=== PATIENT | male | born 1950 | race Caucasian/White ===

== ENCOUNTER 2017-09-05 16:53 | Inpatient (IN) | payer OTHER ==
[~2017-09-05] VITALS: Ht 172.7 cm; Wt 87.6 kg
[~2017-09-05 16:53] MED LIST: DOXY100 PO; Questran4 GM GT
[2017-09-05] MEDS ORDERED: Levothyroxine200 MCG (17:19)
[2017-09-05] MEDS ORDERED: METR500 PO (17:19)
[2017-09-05 17:42] LABS: BASOPHILS ABSOLUTE AUTO 0.06 K/mm3 (0.00-0.23); BASOPHILS PERCENT AUTO 1 % (0-2); EOSINOPHILS ABSOLUTE AUTO 3.83 K/mm3 (0.00-0.68); EOSINOPHILS PERCENT AUTO 38 % (0-6); Hematocrit 44.3 % (37.0-53.0); Hemoglobin 15.1 g/dL (13.5-17.5); IMMATURE GRAN ABSOLUTE AUTO 0.11 K/mm3 (0.00-0.10); IMMATURE GRAN PERCENT AUTO 1 % (0-1); LYMPHOCYTES ABSOLUTE AUTO 1.93 K/mm3 (0.84-5.20); LYMPHOCYTES PERCENT AUTO 19 % (21-46); MONOCYTES ABSOLUTE AUTO 1.03 K/mm3 (0.16-1.47); MONOCYTES PERCENT AUTO 10 % (4-13); Mean Corpuscular HGB 31.5 pg (26.0-34.0); Mean Corpuscular HGB Conc 34.1 g/dL (31.5-36.5); Mean Corpuscular Volume 92 fL (80-100); Mean Platelet Volume 9.5 fL (9.1-12.4); NEUTROPHILS ABSOLUTE AUTO 3.14 K/mm3 (1.96-9.15); NEUTROPHILS PERCENT AUTO 31 % (41-73); Platelet Count 246 K/mm3 (150-400); RDW Coefficient Variation 13.2 % (11.7-14.2)
[2017-09-05 17:52] LABS: Alanine Aminotransfer (ALT/SGP 23 U/L (12-78); Albumin/Globulin Ratio 0.8 (0.8-1.8); Alk Phos 85 U/L (50-136); Anion Gap 8 mmol/L (6-16); Aspartate Aminotrans (AST/SGOT 23 U/L (12-37); Bilirubin, Total 0.4 mg/dL (0.1-1.0); Blood Urea Nitrogen 23 mg/dL (8-24); Bun/Creatinine Ratio 10.3 (12.0-20.0); CO2, Blood 21 mmol/L (21-32); Calcium, Blood 9.1 mg/dL (8.5-10.1); Chloride, Blood 106 mmol/L (98-108); Creatinine, Blood 2.24 mg/dL (0.60-1.20); Free Thyroxine 0.61 ng/dL (0.70-1.60); Globulin, Blood 3.9 g/dL (2.2-4.0); Glomerular Filtration Rate 31 (60-); Glucose, Blood 63 mg/dL (70-99); Potassium, Blood 4.3 mmol/L (3.5-5.5); Sodium, Blood 135 mmol/L (136-145); Total Protein, Blood 6.9 g/dL (6.4-8.2); Troponin I <0.015 ng/mL (0.000-0.040)
[2017-09-05 18:00] LABS: Source, Urine Clean Catch
[2017-09-05 18:13] LABS: Blood, Urine 2+ (Neg); Glucose Qualitative, Urine Neg (Neg); Ketones, Urine Neg (Neg); Leukocyte Esterase, Urine 1+ (Neg); Nitrite, Urine Pos (Neg); Protein, Urine 2+ (Neg); Specific Gravity, Urine 1.025 (1.003-1.022); Urobilinogen, Urine NORM (Normal)
[2017-09-05 18:24] LABS: Appearance, Urine Clear (Clear); Color, Urine Brown (P-Yellow)
[2017-09-05 18:25] LABS: Bacteria Not Seen /hpf; Red Blood Cells, Urine Not Seen /hpf (0-2); Squamous Epithelial Cells Not Seen /hpf (Few); White Blood Cells, Urine Not Seen /hpf (0-5)
[2017-09-06 09:59] LABS: BASOPHILS ABSOLUTE AUTO 0.06 K/mm3 (0.00-0.23); BASOPHILS PERCENT AUTO 1 % (0-2); EOSINOPHILS ABSOLUTE AUTO 2.78 K/mm3 (0.00-0.68); EOSINOPHILS PERCENT AUTO 31 % (0-6); Hematocrit 42.4 % (37.0-53.0); Hemoglobin 14.2 g/dL (13.5-17.5); IMMATURE GRAN ABSOLUTE AUTO 0.09 K/mm3 (0.00-0.10); IMMATURE GRAN PERCENT AUTO 1 % (0-1); LYMPHOCYTES ABSOLUTE AUTO 1.93 K/mm3 (0.84-5.20); LYMPHOCYTES PERCENT AUTO 22 % (21-46); MONOCYTES ABSOLUTE AUTO 1.22 K/mm3 (0.16-1.47); MONOCYTES PERCENT AUTO 14 % (4-13); Mean Corpuscular HGB 30.6 pg (26.0-34.0); Mean Corpuscular HGB Conc 33.5 g/dL (31.5-36.5); Mean Corpuscular Volume 91 fL (80-100); Mean Platelet Volume 9.5 fL (9.1-12.4); NEUTROPHILS ABSOLUTE AUTO 2.82 K/mm3 (1.96-9.15); NEUTROPHILS PERCENT AUTO 32 % (41-73); Platelet Count 238 K/mm3 (150-400); RDW Coefficient Variation 13.4 % (11.7-14.2); RDW Standard Deviation 44.8 fL (35.1-46.3); Red Blood Cell Count 4.64 M/mm3 (4.30-5.90)
[2017-09-06 10:14] LABS: Albumin, Blood 2.8 g/dL (3.4-5.0); Anion Gap 9 mmol/L (6-16); Blood Urea Nitrogen 18 mg/dL (8-24); Bun/Creatinine Ratio 10.8 (12.0-20.0); CO2, Blood 20 mmol/L (21-32); Calcium, Blood 8.8 mg/dL (8.5-10.1); Chloride, Blood 109 mmol/L (98-108); Creatinine, Blood 1.67 mg/dL (0.60-1.20); Glomerular Filtration Rate 44 (60-); Glucose, Blood 94 mg/dL (70-99); Potassium, Blood 4.1 mmol/L (3.5-5.5); Sodium, Blood 138 mmol/L (136-145)
[2017-09-07 05:01] LABS: BASOPHILS ABSOLUTE AUTO 0.02 K/mm3 (0.00-0.23); BASOPHILS PERCENT AUTO 0 % (0-2); EOSINOPHILS ABSOLUTE AUTO 0.06 K/mm3 (0.00-0.68); EOSINOPHILS PERCENT AUTO 1 % (0-6); Hematocrit 37.5 % (37.0-53.0); Hemoglobin 12.7 g/dL (13.5-17.5); IMMATURE GRAN ABSOLUTE AUTO 0.12 K/mm3 (0.00-0.10); IMMATURE GRAN PERCENT AUTO 2 % (0-1); LYMPHOCYTES ABSOLUTE AUTO 1.34 K/mm3 (0.84-5.20); LYMPHOCYTES PERCENT AUTO 20 % (21-46); MONOCYTES ABSOLUTE AUTO 0.48 K/mm3 (0.16-1.47); MONOCYTES PERCENT AUTO 7 % (4-13); Mean Corpuscular HGB 31.1 pg (26.0-34.0); Mean Corpuscular HGB Conc 33.9 g/dL (31.5-36.5); Mean Corpuscular Volume 92 fL (80-100); Mean Platelet Volume 9.8 fL (9.1-12.4); NEUTROPHILS ABSOLUTE AUTO 4.71 K/mm3 (1.96-9.15); NEUTROPHILS PERCENT AUTO 70 % (41-73); Platelet Count 196 K/mm3 (150-400); RDW Coefficient Variation 13.3 % (11.7-14.2); RDW Standard Deviation 45.2 fL (35.1-46.3); Red Blood Cell Count 4.09 M/mm3 (4.30-5.90); White Blood Cell Count 6.73 K/mm3 (4.00-11.30)
[2017-09-07 05:23] LABS: Albumin, Blood 2.5 g/dL (3.4-5.0); Albumin/Globulin Ratio 0.7 (0.8-1.8); Bilirubin, Total 0.4 mg/dL (0.1-1.0); Bun/Creatinine Ratio 12.4 (12.0-20.0); Calcium, Blood 8.4 mg/dL (8.5-10.1); Creatinine, Blood 1.61 mg/dL (0.60-1.20); Globulin, Blood 3.7 g/dL (2.2-4.0); Total Protein, Blood 6.2 g/dL (6.4-8.2)
[2017-09-07 08:31] LABS: Adenovirus F 40/41 Not Detected (NOT DETECT); Astrovirus Not Detected (NOT DETECT); Campylobacter Sp Not Detected (NOT DETECT); Cryptosporidium Not Detected (NOT DETECT); Cyclospora Cayetanensis Not Detected (NOT DETECT); E. Coli O157 Not Detected (NOT DETECT); Entamoeba Histolytica Not Detected (NOT DETECT); Enteroaggregative E. coli-EAEC Not Detected (NOT DETECT); Enteropathogenic E. coli-EPEC Not Detected (NOT DETECT); Enterotoxigenic E. coli-ETEC Not Detected (NOT DETECT); Giardia Lamblia Not Detected (NOT DETECT); Norovirus GI/GII Not Detected (NOT DETECT); Plesiomonas Shigelloides Not Detected (NOT DETECT); Rotavirus A Not Detected (NOT DETECT); Salmonella Sp Not Detected (NOT DETECT); Sapovirus Not Detected (NOT DETECT); Shiga Toxin-prod E. coli-STEC Not Detected (NOT DETECT); Shigella/Enteroin E. coli-EIEC Not Detected (NOT DETECT); Vibrio Cholerae Not Detected (NOT DETECT); Vibrio Sp Not Detected (NOT DETECT); Yersinia Enterocolitica Not Detected (NOT DETECT)
[2017-09-07] MEDS ORDERED: Zofran Odt8 MG PO (11:09)
[2017-09-07] MEDS ORDERED: HYDCOR20 PO (11:09)
[2017-09-07] MEDS ORDERED: Omeprazole20 M1 PO (11:10)
== END 2017-09-07 12:16 | disposition home or self-care (01) | DRG 683 ==
LOC: ER 16:53 → MEDS 18:50 → ER 19:39 → MEDS 19:43 → UNDODEPER 19:43 → MEDS 09-07 12:16
PROVIDERS: Emergency Medicine; Internal Medicine
DX: N17.9 Acute kidney failure, unspecified (principal); E89.6 Postprocedural adrenocortical (-medullary) hypofunction; C78.02 Secondary malignant neoplasm of left lung; C78.01 Secondary malignant neoplasm of right lung; C79.71 Secondary malignant neoplasm of right adrenal gland; C79.01 Secondary malignant neoplasm of right kidney and renal pelvis; E27.1 Primary adrenocortical insufficiency; E86.0 Dehydration; I95.1 Orthostatic hypotension; E16.2 Hypoglycemia, unspecified; R22.0 Localized swelling, mass and lump, head; E23.6 Other disorders of pituitary gland; Z85.528 Personal history of other malignant neoplasm of kidney; Z79.899 Other long term (current) drug therapy; Z90.5 Acquired absence of kidney; Z88.5 Allergy status to narcotic agent
CPT/HCPCS: 36415; 80053; 80069; 80400; 81001; 82024; 82533; 82947; 84439; 84443; 84484; 85025; 87086; 87507; 93005; 93010; 96360; 99285; C9113; J0834; J1720; J2405; J7030; J7042

== ENCOUNTER 2018-04-08 06:40 | Inpatient (IN) | payer OTHER ==
[~2018-04-08] VITALS: Ht 172.7 cm; Wt 102.6 kg
[~2018-04-08 06:40] MED LIST changes: +ACYC800 PO; +CARB200 PO; +CEFU500T30 PO; +HYDCOR20 PO; +LEVSOD137 PO; +Levothyroxine200 MCG; +METR500 PO; +Omeprazole20 M1 PO; +PRED10 PO; +PRED5 PO; +SUMA25 PO; +ZOLP10 PO; +Zofran Odt8 MG PO
[2018-04-08 07:00] LABS: Calcium, Ionized (POC) 1.13 mmol/L (1.10-1.46); Chloride (POC) 95 mmol/L (98-108); Creatinine (POC) 1.5 mg/dL (0.8-1.3); Glucose (ISTAT POC) 88 mg/dL (70-99); Hemoglobin (POC) 11.6 g/dL (13.5-17.5); Potassium (POC) 4.5 mmol/L (3.5-5.5); Sodium (POC) 133 mmol/L (135-148); Total CO2 (POC) 27 mmol/L (21-32)
[2018-04-08 07:01] LABS: BASOPHILS ABSOLUTE AUTO 0.03 K/mm3 (0.00-0.23); BASOPHILS PERCENT AUTO 0 % (0-2); EOSINOPHILS ABSOLUTE AUTO 1.19 K/mm3 (0.00-0.68); EOSINOPHILS PERCENT AUTO 8 % (0-6); Hematocrit 32.4 % (37.0-53.0); Hemoglobin 10.2 g/dL (13.5-17.5); IMMATURE GRAN ABSOLUTE AUTO 0.74 K/mm3 (0.00-0.10); IMMATURE GRAN PERCENT AUTO 5 % (0-1); LYMPHOCYTES ABSOLUTE AUTO 1.51 K/mm3 (0.84-5.20); LYMPHOCYTES PERCENT AUTO 11 % (21-46); MONOCYTES ABSOLUTE AUTO 1.16 K/mm3 (0.16-1.47); MONOCYTES PERCENT AUTO 8 % (4-13); Mean Corpuscular HGB 27.9 pg (26.0-34.0); Mean Corpuscular HGB Conc 31.5 g/dL (31.5-36.5); Mean Corpuscular Volume 89 fL (80-100); Mean Platelet Volume 8.6 fL (9.1-12.4); NEUTROPHILS ABSOLUTE AUTO 9.69 K/mm3 (1.96-9.15); NEUTROPHILS PERCENT AUTO 68 % (41-73); NRBC ABSOLUTE 0.02 K/mm3 (0.00-0.02); NRBC Auto 0.1 /100 WBC (0.0-0.2); Platelet Count 218 K/mm3 (150-400); RDW Coefficient Variation 14.7 % (11.7-14.2); RDW Standard Deviation 48.6 fL (35.1-46.3); Red Blood Cell Count 3.65 M/mm3 (4.30-5.90); White Blood Cell Count 14.32 K/mm3 (4.00-11.30)
[2018-04-08 07:19] LABS: Alanine Aminotransfer (ALT/SGP 28 U/L (12-78); Albumin, Blood 2.8 g/dL (3.4-5.0); Albumin/Globulin Ratio 0.6 (0.8-1.8); Alk Phos 69 U/L (50-136); Anion Gap 6 mmol/L (6-16); Aspartate Aminotrans (AST/SGOT 16 U/L (12-37); Bilirubin, Total 0.1 mg/dL (0.1-1.0); Blood Urea Nitrogen 14 mg/dL (8-24); Bun/Creatinine Ratio 9.4 (12.0-20.0); CO2, Blood 27 mmol/L (21-32); Calcium, Blood 8.2 mg/dL (8.5-10.1); Chloride, Blood 98 mmol/L (98-108); Creatinine, Blood 1.49 mg/dL (0.60-1.20); Free Thyroxine 0.78 ng/dL (0.70-1.60); Globulin, Blood 4.7 g/dL (2.2-4.0); Glomerular Filtration Rate 50 (60-); Glucose, Blood 83 mg/dL (70-99); Potassium, Blood 4.4 mmol/L (3.5-5.5); Sodium, Blood 131 mmol/L (136-145); Total Protein, Blood 7.5 g/dL (6.4-8.2)
[2018-04-08 07:22] LABS: Thyroid Stimulating Hormone <0.005 uIU/mL (0.360-4.800)
[2018-04-08 10:01] LABS: Cryptococcus Neoformans/Gattii Not Detected (NOT DETECT); Enterovirus Not Detected (NOT DETECT); Escherichia Coli K1 Not Detected (NOT DETECT); Haemophilus Influenza Not Detected (NOT DETECT); Herpes Simplex Virus 1 Not Detected (NOT DETECT); Herpes Simplex Virus 2 Not Detected (NOT DETECT); Human Herpesvirus 6 Not Detected (NOT DETECT); Human Parechovirus Not Detected (NOT DETECT); Listeria Monocytogenes Not Detected (NOT DETECT); Neisseria Meningitidis Not Detected (NOT DETECT); Streptococcus Agalactiae Not Detected (NOT DETECT); Streptococcus Pneumoniae Not Detected (NOT DETECT); Varicella Zoster Virus Not Detected (NOT DETECT)
[2018-04-08 10:05] LABS: Automated CSF WBC Count 0.002 K/mm3 (0-5)
[2018-04-08 10:37] LABS: Color, CSF No Color (No Color); RBC Count, CSF 8 /mm3 (0-0)
[2018-04-08 10:38] LABS: Appearance, CSF Clear (Clear)
[2018-04-08 10:49] LABS: Eosinophils, CSF 4 % (0-0); Lymphocytes, CSF 40 % (40-80); Monocytes, CSF 24 % (15-45); Neutrophils, CSF 32 % (0-6)
[2018-04-08 11:08] LABS: Glucose, CSF 49 mg/dL (40-70)
[2018-04-08 16:10] LABS: Source, Urine Catheter
--- NOTE | 2018-04-08 16:24 | NUR ---
PT HAD A DNR BRACELET PLACED AND THEN WAS REMOVED CODE STATUS WAS CHANGED TO LIMITED. PT ALSO WAS BLADDER SCANNED AND 225 ML FOUND, DR Roderick RAYO PRESENT AND REQUESTED CHE CATHETER PLACED FOR STRICT I&Os. PT TOLERATED PLACEMENT WELL. UA COLLECTED AND SENT PER PROTOCOL.
[2018-04-08 16:27] LABS: Appearance, Urine Hazy (Clear); Bilirubin, Urine Neg (Neg); Blood, Urine Neg (Neg); Color, Urine Yellow (P-Yellow); Glucose Qualitative, Urine Neg (Neg); Ketones, Urine Neg (Neg); Leukocyte Esterase, Urine Neg (Neg); Nitrite, Urine Neg (Neg); Protein, Urine Neg (Neg); Specific Gravity, Urine 1.015 (1.003-1.022); Urobilinogen, Urine NORM (Normal)
[2018-04-08 16:53] LABS: Bacteria Not Seen /hpf; Red Blood Cells, Urine Not Seen /hpf (0-2); Squamous Epithelial Cells Not Seen /hpf (Few); White Blood Cells, Urine Not Seen /hpf (0-5)
--- NOTE | 2018-04-08 17:04 | NUR ---
PT ARRIVE TODAY AND WOULD ONLY WAKE UP A COUPLE TIMES ONCE HE SAID A COUPLE WORDS AND SEEMS TO UNDERSTAND WHAT YOU ARE SAYING, BUT IMMEDIATELY FALLS ASLEEP. FEVER CONTINUES TO COME BACK DR Roderick RAYO PRESCIBED TYLENOL SUPPOSITORY. WILL MONITOR CLOSELY.
[2018-04-09 05:18] LABS: BASOPHILS ABSOLUTE AUTO 0.04 K/mm3 (0.00-0.23); BASOPHILS PERCENT AUTO 0 % (0-2); EOSINOPHILS ABSOLUTE AUTO 1.11 K/mm3 (0.00-0.68); EOSINOPHILS PERCENT AUTO 7 % (0-6); Hematocrit 30.6 % (37.0-53.0); Hemoglobin 9.5 g/dL (13.5-17.5); IMMATURE GRAN ABSOLUTE AUTO 0.72 K/mm3 (0.00-0.10); IMMATURE GRAN PERCENT AUTO 5 % (0-1); LYMPHOCYTES PERCENT AUTO 8 % (21-46); MONOCYTES PERCENT AUTO 6 % (4-13); Mean Corpuscular HGB 27.4 pg (26.0-34.0); Mean Corpuscular Volume 88 fL (80-100); NEUTROPHILS ABSOLUTE AUTO 11.82 K/mm3 (1.96-9.15); NEUTROPHILS PERCENT AUTO 75 % (41-73); Platelet Count 189 K/mm3 (150-400); RDW Coefficient Variation 14.8 % (11.7-14.2); RDW Standard Deviation 47.3 fL (35.1-46.3); Red Blood Cell Count 3.47 M/mm3 (4.30-5.90); White Blood Cell Count 15.79 K/mm3 (4.00-11.30)
--- NOTE | 2018-04-09 05:31 | NUR ---
VSS, AFEBRILE, A/O BUT VERY LETHARGIC AT TIMES, PT MORE ALERT AND AWAKE NEAR MORNING, IV IN EACH AC, NS @ 75 ML/HR, IVABX, ANTIVIRAL THERAPY, CHE FOR ACCURATE I/O, NEG SPINAL TAP. PMHX: RENAL CELL CARCINOMA W/METS TO THE BRAIN, CKD STAGE 3, HYPOTHYROIDISM. BED REST BUT USES BED PRABHAKAR WELL. FAMILY AT THE BEDSIDE
[2018-04-09 05:40] LABS: Albumin, Blood 2.4 g/dL (3.4-5.0); Albumin/Globulin Ratio 0.5 (0.8-1.8); Bilirubin, Total 0.2 mg/dL (0.1-1.0); Bun/Creatinine Ratio 13.3 (12.0-20.0); Calcium, Blood 7.6 mg/dL (8.5-10.1); Creatinine, Blood 1.35 mg/dL (0.60-1.20); Globulin, Blood 4.4 g/dL (2.2-4.0); Total Protein, Blood 6.8 g/dL (6.4-8.2)
--- NOTE | 2018-04-09 17:24 | NUR ---
PT IS AOX4 TODAY AND IS ABLE TO AMBULATE A STANDBY ASSIST TO RESTROOM. CHE HAS BEEN REMOVED AND PT TOLERATED WELL. PT CALLS APPROPRIATELY. NO DISTRESS NOTED AT THIS TIME. REGULAR DIET AND THIN LIQUIDS.
[2018-04-09 17:54] LABS: Vancomycin, Trough 20.7 ug/mL (5.0-10.0)
[2018-04-10 05:02] LABS: BASOPHILS ABSOLUTE AUTO 0.04 K/mm3 (0.00-0.23); BASOPHILS PERCENT AUTO 0 % (0-2); EOSINOPHILS ABSOLUTE AUTO 0.96 K/mm3 (0.00-0.68); EOSINOPHILS PERCENT AUTO 7 % (0-6); Hematocrit 27.6 % (37.0-53.0); Hemoglobin 8.8 g/dL (13.5-17.5); IMMATURE GRAN ABSOLUTE AUTO 0.38 K/mm3 (0.00-0.10); IMMATURE GRAN PERCENT AUTO 3 % (0-1); LYMPHOCYTES ABSOLUTE AUTO 1.38 K/mm3 (0.84-5.20); LYMPHOCYTES PERCENT AUTO 11 % (21-46); MONOCYTES ABSOLUTE AUTO 0.84 K/mm3 (0.16-1.47); MONOCYTES PERCENT AUTO 6 % (4-13); Mean Corpuscular HGB 27.5 pg (26.0-34.0); Mean Corpuscular HGB Conc 31.9 g/dL (31.5-36.5); Mean Corpuscular Volume 86 fL (80-100); Mean Platelet Volume 9.1 fL (9.1-12.4); NEUTROPHILS PERCENT AUTO 73 % (41-73); Platelet Count 196 K/mm3 (150-400); RDW Coefficient Variation 14.8 % (11.7-14.2); RDW Standard Deviation 46.5 fL (35.1-46.3)
[2018-04-10 05:23] LABS: Albumin, Blood 2.5 g/dL (3.4-5.0); Albumin/Globulin Ratio 0.6 (0.8-1.8); Bilirubin, Total 0.1 mg/dL (0.1-1.0); Bun/Creatinine Ratio 16.3 (12.0-20.0); C-REACTIVE PROTEIN, EXT RANGE 8.41 mg/dL (0.000-0.300); Calcium, Blood 7.9 mg/dL (8.5-10.1); Creatinine, Blood 1.29 mg/dL (0.60-1.20); Globulin, Blood 4.2 g/dL (2.2-4.0); Magnesium, Blood 2.4 mg/dL (1.6-2.4); Phosphorus, Blood 2.3 mg/dL (2.5-4.9); Potassium, Blood 3.7 mmol/L (3.5-5.5); Total Protein, Blood 6.7 g/dL (6.4-8.2)
--- NOTE | 2018-04-10 06:05 | NUR ---
VSS, AFEBRILE, A/O, MORE LUCID AND ACTIVE THIS SHIFT, INDEPENDENT TO BR, IV IN EA AC, NS @ 75 ML/HR, FAMILY AT THE BEDSIDE, MULTIPLE IVABX. PMHX: RENAL CELL CARCINOMA W/METS TO BRAIN, CKD STAGE 3, HYPOTHYROIDISM. SLEPT WELL, NO COMPLAINTS.
[2018-04-10 06:56] LABS: IMMATURE RETIC FRACTION 27.2 % (2.3-16.0); RETIC HGB EQUIVALENT 32.8 pg (28.20-36.60); RETICULOCYTE ABSOLUTE 0.0468 M/mm3 (0.0200-0.1100); RETICULOCYTE COUNT PERCENT 1.51 % (0.50-2.50)
[2018-04-10 07:25] LABS: Percent Saturation 17.5 % (20.0-50.0)
--- NOTE | 2018-04-10 19:34 | NUR ---
SHIFT SUMMARY PT A&Ox4, CALM AND COOPERATIVE WITH CARE. PT UP IN CHAIR DURING SHIFT. IND TO BATHROOM. PT DENIES PAIN, SOB AND N/V DURING SHIFT. PT RECEIVING IV ANTIBIOTICS, ANTIVIRALS, STEROIDS AND POTASSIUM PHOSPHATE. VSS. NO OTHER ACUTE CHANGES DURING SHIFT. REPORT GIVEN TO ONCOMING RN.
--- NOTE | 2018-04-11 05:35 | NUR ---
VSS, AFEBRILE, A/O X 4, INDEPENDENT, IV IN EACH AC, NS @ 75 ML/HR, MANY IV ABX, FAMILY AT THE BEDSIDE CAN BE DEMANDING AT TIMES. PMHX: RENAL CELL CARCINOMA W/METS TO BRAIN, CKD STAGE 3, HYPOTHYROIDISM. CONSULT TO INFECTION CONTROL. SLEPT WELL OVER NOC.
[2018-04-11 05:36] LABS: BASOPHILS ABSOLUTE AUTO 0.05 K/mm3 (0.00-0.23); BASOPHILS PERCENT AUTO 1 % (0-2); EOSINOPHILS ABSOLUTE AUTO 1.31 K/mm3 (0.00-0.68); EOSINOPHILS PERCENT AUTO 12 % (0-6); Hematocrit 29.1 % (37.0-53.0); Hemoglobin 9.1 g/dL (13.5-17.5); IMMATURE GRAN ABSOLUTE AUTO 0.65 K/mm3 (0.00-0.10); IMMATURE GRAN PERCENT AUTO 6 % (0-1); LYMPHOCYTES ABSOLUTE AUTO 2.04 K/mm3 (0.84-5.20); LYMPHOCYTES PERCENT AUTO 19 % (21-46); MONOCYTES ABSOLUTE AUTO 1.07 K/mm3 (0.16-1.47); MONOCYTES PERCENT AUTO 10 % (4-13); Mean Corpuscular HGB 27.8 pg (26.0-34.0); Mean Corpuscular HGB Conc 31.3 g/dL (31.5-36.5); Mean Platelet Volume 8.9 fL (9.1-12.4); NEUTROPHILS ABSOLUTE AUTO 5.91 K/mm3 (1.96-9.15); NEUTROPHILS PERCENT AUTO 54 % (41-73); Platelet Count 249 K/mm3 (150-400); RDW Coefficient Variation 14.9 % (11.7-14.2); RDW Standard Deviation 48.6 fL (35.1-46.3); Red Blood Cell Count 3.27 M/mm3 (4.30-5.90); White Blood Cell Count 11.03 K/mm3 (4.00-11.30)
[2018-04-11 05:41] LABS: Mean Corpuscular Volume 89 fL (80-100)
[2018-04-11 05:57] LABS: Anion Gap 8 mmol/L (6-16); Blood Urea Nitrogen 16 mg/dL (8-24); Bun/Creatinine Ratio 12.6 (12.0-20.0); CO2, Blood 26 mmol/L (21-32); Calcium, Blood 7.8 mg/dL (8.5-10.1); Chloride, Blood 108 mmol/L (98-108); Creatinine, Blood 1.27 mg/dL (0.60-1.20); Glomerular Filtration Rate 60 (60-); Glucose, Blood 89 mg/dL (70-99); Phosphorus, Blood 1.7 mg/dL (2.5-4.9); Sodium, Blood 142 mmol/L (136-145)
[2018-04-11 06:05] LABS: Vancomycin, Trough 20.2 ug/mL (5.0-10.0)
--- NOTE | 2018-04-11 06:14 | NUR ---
CRITICAL LAB VALUE: VANCO 20.2 PHARMACY AWARE. WILL HOLD THE 0600 DOSE OF VANCO TODAY PER PHARMACY.
--- NOTE | 2018-04-11 10:32 | NUR ---
Patient was alert and welcoming. His , Ariana was present in the room. Pt showed no signs of physical pain. Pt verbalized frustration over the continual health struggles and shared some of his medical history along with the spiritual and emotional toll that the medical issues has taken on Ariana and on himself. I normalized his experience and offered emotional and spiritual support by empathically listening and providing some uplifting Bible quotes. I prayed for the patient and Ariana. They both stated with smiles on their faces that they were encouraged by the visit and that hope was improved as well as having their vielka restored.
--- NOTE | 2018-04-11 14:03 | NUR ---
Pt is sitting in a chair upon arrival. He is A&O and denies pain at this time. Pt's is present during visit. Pt denies dyspnea and axiety. He is of Taoism vielka. He reprots that he may be discharged home tomorrow. Pt reports that he will have a PICC line placed and will receive IV antibiotic therapy at the [facility]. Pt and report they have adequate support at home and can rely on their older son and their friends from [place]. Pt reports that he received a visit from Chaplain Contreras and enjoyed his visit. Discussion was made about advance directive and Pt expresses interest. Educated Pt and his on advance directives and instructed them this RN will be available to answer any questions or concerns. No other concerns reported at this time. Spoke with Pt's nurse and she reports no concerns at this time. Plan to reamain available
--- NOTE | 2018-04-11 18:16 | NUR ---
PATIENT IS PLEASANT, ALERT AND ORIENTED AND ABLE TO EXPRESS ANY NEEDS . HE IS INDEPENDENT IN THE ROOM AND HAS HIS AT BEDSIDE THROUGHOUT THE SHIFT. VANCO HELD DUE TO CRITICAL VALUE . PATIENT TO DC MONDAY AND WILL RETURN BID TO ATC FOR IV ABX. PATIENT HAS HAD NO COMPLAINTS THIS SHIFT .
--- NOTE | 2018-04-12 06:49 | NUR ---
SHIFT SUMMARY PT A&OX4, PLEASANT AND COOPERATIVE WITH CARE. AMBULATES INDEPENDENTLY IN ROOM. AT BEDSIDE ALL NIGHT. SLEPT WELL. NO ACUTE CHANGES AT THIS SHIFT. WILL CONTINUE TO MONITOR.
[2018-04-12 06:51] LABS: Hematocrit 29.5 % (37.0-53.0); Hemoglobin 9.2 g/dL (13.5-17.5); Mean Corpuscular HGB 27.9 pg (26.0-34.0); Mean Corpuscular HGB Conc 31.2 g/dL (31.5-36.5); Mean Corpuscular Volume 89 fL (80-100); Mean Platelet Volume 8.9 fL (9.1-12.4); NRBC ABSOLUTE 0.04 K/mm3 (0.00-0.02); NRBC Auto 0.5 /100 WBC (0.0-0.2); Platelet Count 258 K/mm3 (150-400); RDW Coefficient Variation 15.4 % (11.7-14.2); RDW Standard Deviation 50.2 fL (35.1-46.3); White Blood Cell Count 8.48 K/mm3 (4.00-11.30)
[2018-04-12 07:06] LABS: C-REACTIVE PROTEIN, EXT RANGE 1.9 mg/dL (0.000-0.300); Phosphorus, Blood 2.6 mg/dL (2.5-4.9)
[2018-04-12 07:28] LABS: BASOPHILS ABSOLUTE MAN 0.16 K/mm3 (0.00-0.23); BASOPHILS PERCENT MAN 2 % (0-2); EOSINOPHILS ABSOLUTE MAN 1.44 K/mm3 (0.00-0.68); EOSINOPHILS PERCENT MAN 17 % (0-6); LYMPHOCYTES ABSOLUTE MAN 2.54 K/mm3 (0.84-5.20); LYMPHOCYTES PERCENT MAN 30 % (21-46); METAMYELOCYTE ABSOLUTE MAN 0.08 K/mm3 (0.00-0.00); METAMYELOCYTE PERCENT MAN 1 % (0-0); MONOCYTES ABSOLUTE MAN 0.16 K/mm3 (0.16-1.47); MONOCYTES PERCENT MAN 2 % (4-13); MYELOCYTE ABSOLUTE MAN 0.16 K/mm3 (0.00-0.00); MYELOCYTE PERCENT MAN 2 % (0-0); SEG NEUTROPHILS PERCENT MAN 46 % (41-73); TOTAL CELLS COUNTED 100
--- NOTE | 2018-04-12 11:00 | NUR ---
Patient was sitting up in a chair when I entered the room. Pt. was, in his own words, "having a pity republican" and "feeling broken." I was able to listen empathically to his current struggle that was connected to his worth as a man and the fears that link back to his father's slow deterioration and demise. Since I was already familiar with the patient's vielka system, I was able to encourage him with a few quotes from the Bible concerning his value and worth. I also affirmed his courage and his helpful attitudes and practices and offer emotionally and spiritual support. I closed our time with proving prayer. Pt showed signs of an elevated mood, reduced sress, and restored vielka.
[2018-04-12] MEDS ORDERED: Rocephin 1g1 G/50 ML IV (12:39)
[2018-04-12] MEDS ORDERED: VANCOMYCIN1.5 GM/252 IV (12:41)
[2018-04-12] MEDS ORDERED: FURO40 PO (12:42)
[2018-04-12] MEDS ORDERED: POTA10T PO (12:47)
--- NOTE | 2018-04-12 18:20 | NUR ---
DISCHARGE. PT TO DISCHARGE HOME. FINAL IV ABX GIVEN. PATIENT TO RETURN BID TO [facility] FOR IV ABX . PATIENT AND EDUATED REGARDING NEW MEDS AND PROPER CARE OF PICC . IV REMOVED. NO SS OF INFECTION NOTED. PATIENT WALKED OUT WITH .
== END 2018-04-12 19:02 | disposition home or self-care (01) | DRG 98 ==
LOC: ER 06:40 → ERHOLD 09:22 → MEDS 09:22
PROVIDERS: Emergency Medicine; Hospitalist; ADMIT Family Medicine
PROC: 009Y3ZX Drainage of Lumbar Spinal Cord, Percutaneous Approach, Diagnostic (ICD-10-PCS; principal; 2018-04-08)
DX: A86 Unspecified viral encephalitis (principal); E23.0 Hypopituitarism; E27.40 Unspecified adrenocortical insufficiency; C79.31 Secondary malignant neoplasm of brain; D50.9 Iron deficiency anemia, unspecified; G50.0 Trigeminal neuralgia; I12.9 Hypertensive chronic kidney disease with stage 1 through stage 4 chronic kidney disease, or unspecified chronic kidney disease; N18.3 Chronic kidney disease, stage 3 (moderate); Z79.899 Other long term (current) drug therapy; Z85.528 Personal history of other malignant neoplasm of kidney
CPT/HCPCS: 36415; 36569; 62270; 70450; 80047; 80048; 80053; 80156; 80202; 81001; 82607; 82728; 82746; 82945; 83540; 83550; 83605; 83735; 84100; 84157; 84439; 84443; 85014; 85025; 85045; 85651; 86140; 87040; 87070; 87205; 87483; 89051; 93005; 93010; 96361; 96365; 96367; 96375; 99285-25; C1751; J0696; J1650; J1720; J1940; J2185; J3370; J7030; J7050; J7060; J8499

== ENCOUNTER 2018-04-13 01:31 | Day surgery (SDC) | payer OTHER ==
[~2018-04-13 01:31] MED LIST changes: +FURO40 PO; +POTA10T PO; +Rocephin 1g1 G/50 ML IV; +VANCOMYCIN1.5 GM/252 IV
[2018-04-13 08:29] LABS: Creatinine, Blood 1.29 mg/dL (0.60-1.20); Vancomycin, Trough 14.8 ug/mL (5.0-10.0)
== END 2018-04-13 16:20 | disposition home or self-care (01) ==
LOC: ATC 01:31
PROVIDERS: Hospitalist
DX: G03.9 Meningitis, unspecified (principal); N18.3 Chronic kidney disease, stage 3 (moderate); E03.9 Hypothyroidism, unspecified
CPT/HCPCS: 36592; 80202; 82565; 96365; J0696; J3370; J7050

== ENCOUNTER 2018-04-14 07:20 | Day surgery (SDC) | payer OTHER | END 2018-04-14 16:25 | disposition home or self-care (01) | LOC: ATC 07:20 | DX: G93.40 Encephalopathy, unspecified (principal) | CPT/HCPCS: 96365; 96367; J0696; J3370; J7050 ==

== ENCOUNTER 2018-04-15 07:27 | Day surgery (SDC) | payer OTHER | END 2018-04-15 16:13 | disposition home or self-care (01) | LOC: ATC 07:27 | DX: G93.40 Encephalopathy, unspecified (principal); N18.3 Chronic kidney disease, stage 3 (moderate); E78.5 Hyperlipidemia, unspecified | CPT/HCPCS: 96365; 96367; J0696; J3370; J7050 ==

== ENCOUNTER 2018-04-16 00:03 | Day surgery (SDC) | payer OTHER ==
[2018-04-16 08:38] LABS: Creatinine, Blood 1.09 mg/dL (0.60-1.20); Vancomycin, Trough 16.5 ug/mL (5.0-10.0)
[2018-04-17] MEDS ORDERED: VANCO 1.51.5 GM/250 IV (08:09)
== END 2018-04-16 16:32 | disposition home or self-care (01) ==
LOC: ATC 00:03
PROVIDERS: Hospitalist
DX: G03.9 Meningitis, unspecified (principal); G93.40 Encephalopathy, unspecified; G50.9 Disorder of trigeminal nerve, unspecified; E78.5 Hyperlipidemia, unspecified; E27.1 Primary adrenocortical insufficiency; Z79.01 Long term (current) use of anticoagulants
CPT/HCPCS: 80202; 82565; 96365; 96367; J0696; J3370; J7050

== ENCOUNTER 2018-04-17 00:04 | Day surgery (SDC) | payer OTHER ==
[2018-04-17] MEDS ORDERED: VANCO 1.51.5 GM/250 IV (08:09)
== END 2018-04-17 16:30 | disposition home or self-care (01) ==
LOC: ATC 00:04
DX: G93.40 Encephalopathy, unspecified (principal)
CPT/HCPCS: 96365; 96368; J0696; J3370; J7050

== ENCOUNTER 2018-04-18 00:15 | Day surgery (SDC) | payer OTHER ==
[~2018-04-18 00:15] MED LIST changes: +VANCO 1.51.5 GM/250 IV
== END 2018-04-18 17:28 | disposition home or self-care (01) ==
LOC: ATC 00:15
DX: G03.9 Meningitis, unspecified (principal); G50.9 Disorder of trigeminal nerve, unspecified; Z79.01 Long term (current) use of anticoagulants
CPT/HCPCS: 96365; 96368; J0696; J3370; J7050

== ENCOUNTER 2018-04-19 00:10 | Day surgery (SDC) | payer OTHER ==
[2018-04-19 09:01] LABS: BASOPHILS ABSOLUTE AUTO 0.11 K/mm3 (0.00-0.23); BASOPHILS PERCENT AUTO 2 % (0-2); EOSINOPHILS ABSOLUTE AUTO 0.37 K/mm3 (0.00-0.68); EOSINOPHILS PERCENT AUTO 5 % (0-6); Hemoglobin 10.5 g/dL (13.5-17.5); IMMATURE GRAN ABSOLUTE AUTO 0.07 K/mm3 (0.00-0.10); IMMATURE GRAN PERCENT AUTO 1 % (0-1); LYMPHOCYTES ABSOLUTE AUTO 2.07 K/mm3 (0.84-5.20); LYMPHOCYTES PERCENT AUTO 28 % (21-46); MONOCYTES ABSOLUTE AUTO 0.98 K/mm3 (0.16-1.47); MONOCYTES PERCENT AUTO 13 % (4-13); Mean Corpuscular HGB 27.5 pg (26.0-34.0); Mean Corpuscular HGB Conc 30.9 g/dL (31.5-36.5); Mean Corpuscular Volume 89 fL (80-100); Mean Platelet Volume 8.4 fL (9.1-12.4); NEUTROPHILS ABSOLUTE AUTO 3.73 K/mm3 (1.96-9.15); NEUTROPHILS PERCENT AUTO 51 % (41-73); Platelet Count 318 K/mm3 (150-400); RDW Coefficient Variation 15.2 % (11.7-14.2); RDW Standard Deviation 49.9 fL (35.1-46.3); Red Blood Cell Count 3.82 M/mm3 (4.30-5.90); White Blood Cell Count 7.33 K/mm3 (4.00-11.30)
[2018-04-19 09:20] LABS: Alanine Aminotransfer (ALT/SGP 29 U/L (12-78); Albumin, Blood 3.2 g/dL (3.4-5.0); Albumin/Globulin Ratio 0.7 (0.8-1.8); Alk Phos 60 U/L (50-136); Anion Gap 4 mmol/L (6-16); Aspartate Aminotrans (AST/SGOT 10 U/L (12-37); Bilirubin, Total 0.2 mg/dL (0.1-1.0); Blood Urea Nitrogen 18 mg/dL (8-24); Bun/Creatinine Ratio 16.1 (12.0-20.0); CO2, Blood 29 mmol/L (21-32); Calcium, Blood 8.6 mg/dL (8.5-10.1); Chloride, Blood 103 mmol/L (98-108); Creatinine, Blood 1.12 mg/dL (0.60-1.20); Globulin, Blood 4.8 g/dL (2.2-4.0); Glomerular Filtration Rate >60 (60-); Glucose, Blood 105 mg/dL (70-99); Sodium, Blood 136 mmol/L (136-145)
--- NOTE | 2018-04-19 17:24 | NUR ---
PT C/O RASH ON BUE, THIS RN DID NOTICE DIFUSE RED SPOTS. DENIES SOB, TONGUE SWELLING, FEVER, CHILLS, N/V. PT STS HE IS ACTUALLY FEELING BETTER. PT STS HE HAS CALLED HIS DOCTOR AND SPOKE TO A NURSE RE. THE RASH. PT DECLINES GOING TO ER AT THIS TIME.
== END 2018-04-19 17:22 | disposition home or self-care (01) ==
LOC: ATC 00:10
PROVIDERS: Hospitalist
DX: G04.90 Encephalitis and encephalomyelitis, unspecified (principal); G50.9 Disorder of trigeminal nerve, unspecified; Z79.01 Long term (current) use of anticoagulants
CPT/HCPCS: 80053; 85025; 85651; 86140; 96365; 96367; J0696; J3370; J7050

== ENCOUNTER 2018-04-26 00:17 | Day surgery (SDC) | payer OTHER ==
--- NOTE | 2018-04-26 18:04 | NUR ---
LABS: UNABLE TO DRAW LABS VIA PICC, PT WANTS TO GET LABS DRAWN OVER AT [facility] SINCE HE HAS OTHER LABS TO BE DRAWN PRIOR TO PROCEDURE NEXT WEEK, COPIES OF ORDERS GIVEN TO PT
== END 2018-04-26 17:35 | disposition home or self-care (01) ==
LOC: ATC 00:17
DX: G93.40 Encephalopathy, unspecified (principal); G25.3 Myoclonus; E23.0 Hypopituitarism; G50.0 Trigeminal neuralgia
CPT/HCPCS: 99211

== ENCOUNTER → 2018-05-03 | Outpatient (CLI) | payer OTHER ==
[2018-05-03 13:12] LABS: Source, Urine Clean Catch
[2018-05-03 14:30] LABS: Bilirubin, Urine Neg (Neg); Blood, Urine Neg (Neg); Glucose Qualitative, Urine Neg (Neg); Ketones, Urine Neg (Neg); Leukocyte Esterase, Urine 1+ (Neg); Nitrite, Urine Neg (Neg); Protein, Urine 1+ (Neg); Urobilinogen, Urine NORM (Normal)
[2018-05-03 14:49] LABS: Appearance, Urine Clear (Clear); Color, Urine Yellow (P-Yellow)
[2018-05-03 14:57] LABS: Bacteria Few /hpf; Red Blood Cells, Urine 0-2 /hpf (0-2); Squamous Epithelial Cells Not Seen /hpf (Few)
[2018-05-03 15:22] LABS: Chloride, Urine, Random 102 mmol/L (55-125); Sodium, Urine, Random 65 mmol/L (20-110)
== END ==
LOC: LAB SHORT 13:08 → LAB 13:08
PROVIDERS: Hospitalist
DX: N17.9 Acute kidney failure, unspecified (principal)
CPT/HCPCS: 81001; 82436; 84300; 87086

== ENCOUNTER 2018-05-04 09:03 | Day surgery (SDC) | payer OTHER ==
--- NOTE | 2018-05-04 12:15 | NUR ---
ORDERS NOTED TO DC PICC LINE AND PT TEACHING ON PROCEDURE. I REMOVED THE TOP OF OPSITE DRESSING PT TOLD ME "I DONT FEEL GOOD". SLOW, DEEP BREATHING TECHNIQUE TEACHING FOR PT. PT PALE, NOT DIAPHORETIC. MANUAL BP TAKEN 70/20 PULSE 64 BIOX 99% ON RA. PT HEAD TURNED TO R SIDE AND BLANK STARE NOTED WITH SLIGHT RIDIDF/TREMOR NOTED TO BUE. CALL FOR 2ND RN TO ROOM. TREMOR SUBSIDED AND PT ABLE TO ANSWER QUESTIONS APPROPRIATE, YET SLOW TO RESPOND WITH ONE WORD ANSWER. RAPID RESPONSE CALLED. PRAVIN NICHOLSON ARRIVED AND ASSESSING PT, BP REMAINS LOW. CYLINDER VALVE REPAIRER SATISH ARRIVED AND PT TRANSFERRED TO [facility] AND FEET ELEVATED. COLOR HAD RETURNED AND BP 80/50'S. PT REPORTS HIS CONTACT(EYE) IS WEIRD, THEN REPORTS HIS VISION IS OFF. BP RECHECKED 120/70'S. CALL PLACED TO DR VAN. 1/2 HR LATER PT VS TAKEN: LAYING 128/76 P 68, SITTING 90/70 P 71 STANDIN/57 P:71. PT TRANSFERRED TO CHAIR. SHORTLY AFTER SITTING PT REPORTS "IM STARTING TO FEEL ODD AGAIN". BP 80/50 PALE, NOT DIAPHORETIC. PT RETURNED TO [facility], FEET ELEVATED. DR VAN REACHED AND REPORTS TO GIVE 1 LITER IV NS NOW AND SEND PT TO ER. RETIREMENT THROUGH INFUSION, PT NOW AGREES TO GO TO ER, AFTER TALKING WITH DR WELDON STAFF. ARRIVES TO CLINIC. BP 170/82 P 66 TEMP 97.8. LAST SET OF VS 143/79 P 67. PT ESCORTED TO ER VIA W/C AND IN ATTENDANCE. AFTER PT RECEIVED IN TRIAGE, IV INFUSION D/C'D AFTER 960ML NS. SWAB CAP PLACED ON END CAP. REPORT CALLED AND GIVEN TO BRENT ZUNIGA AND PT ESCORTED FEET ELEVATED
== END 2018-05-04 14:30 | disposition home or self-care (01) ==
LOC: ATC 09:03
DX: G04.90 Encephalitis and encephalomyelitis, unspecified (principal); G50.9 Disorder of trigeminal nerve, unspecified; Z79.01 Long term (current) use of anticoagulants
CPT/HCPCS: 96360; J7030

== ENCOUNTER 2018-05-04 11:08 | Emergency (ER) | payer OTHER ==
[~2018-05-04] VITALS: Ht 172.7 cm; Wt 99.8 kg
[2018-05-04 11:48] LABS: BASOPHILS ABSOLUTE AUTO 0.07 K/mm3 (0.00-0.23); BASOPHILS PERCENT AUTO 1 % (0-2); EOSINOPHILS ABSOLUTE AUTO 2.02 K/mm3 (0.00-0.68); EOSINOPHILS PERCENT AUTO 31 % (0-6); Hematocrit 34.3 % (37.0-53.0); Hemoglobin 10.8 g/dL (13.5-17.5); IMMATURE GRAN ABSOLUTE AUTO 0.08 K/mm3 (0.00-0.10); IMMATURE GRAN PERCENT AUTO 1 % (0-1); LYMPHOCYTES ABSOLUTE AUTO 1.52 K/mm3 (0.84-5.20); LYMPHOCYTES PERCENT AUTO 23 % (21-46); MONOCYTES PERCENT AUTO 15 % (4-13); Mean Corpuscular HGB 27.7 pg (26.0-34.0); Mean Corpuscular HGB Conc 31.5 g/dL (31.5-36.5); Mean Corpuscular Volume 88 fL (80-100); Mean Platelet Volume 9.3 fL (9.1-12.4); NEUTROPHILS ABSOLUTE AUTO 1.91 K/mm3 (1.96-9.15); NEUTROPHILS PERCENT AUTO 29 % (41-73); Platelet Count 175 K/mm3 (150-400); RDW Coefficient Variation 14.8 % (11.7-14.2); RDW Standard Deviation 47.9 fL (35.1-46.3)
[2018-05-04 12:11] LABS: Albumin, Blood 3.2 g/dL (3.4-5.0); Albumin/Globulin Ratio 0.7 (0.8-1.8); Bilirubin, Total 0.2 mg/dL (0.1-1.0); Bun/Creatinine Ratio 14.2 (12.0-20.0); Calcium, Blood 8.3 mg/dL (8.5-10.1); Creatinine, Blood 1.55 mg/dL (0.60-1.20); Globulin, Blood 4.5 g/dL (2.2-4.0); Total Protein, Blood 7.7 g/dL (6.4-8.2)
== END 2018-05-04 14:08 | disposition home or self-care (01) ==
LOC: ER 11:08
PROVIDERS: Physician Assistant
DX: R55 Syncope and collapse (principal); Z79.899 Other long term (current) drug therapy; Z79.52 Long term (current) use of systemic steroids
CPT/HCPCS: 36415; 80053; 85025; 93005; 93010; 99284-25

== ENCOUNTER 2018-07-24 03:59 | Inpatient (IN) | payer OTHER ==
[~2018-07-24] VITALS: Ht 177.8 cm; Wt 87.6 kg
[2018-07-24] MEDS ORDERED: CABOMETYX60 MG PO (04:24)
[2018-07-24 04:53] LABS: BASOPHILS ABSOLUTE AUTO 0.06 K/mm3 (0.00-0.23); BASOPHILS PERCENT AUTO 1 % (0-2); EOSINOPHILS ABSOLUTE AUTO 1.21 K/mm3 (0.00-0.68); EOSINOPHILS PERCENT AUTO 21 % (0-6); Hematocrit 43.2 % (37.0-53.0); Hemoglobin 13.8 g/dL (13.5-17.5); IMMATURE GRAN ABSOLUTE AUTO 0.01 K/mm3 (0.00-0.10); IMMATURE GRAN PERCENT AUTO 0 % (0-1); LYMPHOCYTES ABSOLUTE AUTO 1.65 K/mm3 (0.84-5.20); LYMPHOCYTES PERCENT AUTO 29 % (21-46); MONOCYTES PERCENT AUTO 16 % (4-13); Mean Corpuscular HGB 26.8 pg (26.0-34.0); Mean Corpuscular HGB Conc 31.9 g/dL (31.5-36.5); Mean Corpuscular Volume 84 fL (80-100); Mean Platelet Volume 9.4 fL (9.1-12.4); NEUTROPHILS ABSOLUTE AUTO 1.94 K/mm3 (1.96-9.15); NEUTROPHILS PERCENT AUTO 34 % (41-73); Platelet Count 258 K/mm3 (150-400); RDW Coefficient Variation 15.3 % (11.7-14.2); RDW Standard Deviation 47.2 fL (35.1-46.3); Red Blood Cell Count 5.15 M/mm3 (4.30-5.90); White Blood Cell Count 5.77 K/mm3 (4.00-11.30)
[2018-07-24 05:12] LABS: Source, Urine Clean Catch
[2018-07-24 05:14] LABS: Albumin, Blood 3.2 g/dL (3.4-5.0); Albumin/Globulin Ratio 0.6 (0.8-1.8); Bilirubin, Total 0.3 mg/dL (0.1-1.0); Bun/Creatinine Ratio 19.1 (12.0-20.0); Calcium, Blood 8.8 mg/dL (8.5-10.1); Creatinine, Blood 2.51 mg/dL (0.60-1.20); Globulin, Blood 5.2 g/dL (2.2-4.0); Potassium, Blood 4.3 mmol/L (3.5-5.5); Total Protein, Blood 8.4 g/dL (6.4-8.2)
[2018-07-24 05:26] LABS: Blood, Urine 4+ (Neg); Glucose Qualitative, Urine Neg (Neg); Ketones, Urine 3+ (Neg); Leukocyte Esterase, Urine 1+ (Neg); Nitrite, Urine Neg (Neg); Protein, Urine 2+ (Neg); Specific Gravity, Urine 1.025 (1.003-1.022); Urobilinogen, Urine NORM (Normal)
[2018-07-24 05:27] LABS: Bilirubin, Urine 1+ (Neg)
[2018-07-24 05:34] LABS: Appearance, Urine Hazy (Clear); Bacteria Few /hpf; Color, Urine Yellow (P-Yellow); Squamous Epithelial Cells Few /hpf (Few); White Blood Cells, Urine 0-2 /hpf (0-5)
[2018-07-24 05:37] LABS: Source, Urine Clean Catch
[2018-07-24 06:30] LABS: Bacteria Few /hpf; Hyaline Casts 0-2 /lpf (0-2); Squamous Epithelial Cells Few /hpf (Few); White Blood Cells, Urine 0-2 /hpf (0-5)
[2018-07-24 06:31] LABS: Hyaline Casts 0-2 /lpf (0-2)
[2018-07-24 14:08] LABS: Carbamazepine 10.5 ug/mL (4.0-12.0)
[2018-07-24 14:09] LABS: Thyroid Stimulating Hormone 0.006 uIU/mL (0.360-4.800)
--- NOTE | 2018-07-24 14:36 | NUR ---
Patient is sitting on the edge of the bed eating and alert to person but not place. After I asked patient a few questions patient told me a long but very slow story about the events of the last couple days that were not grounded in reality at all. Patient is still able to communicate love and kindness even in his confused state. I listened to patient's altered state and only encouraged him and communicate love back to patient. I quoted scriptures that patient had quoted to me in my cancer ellis, I reassured him with about the love of family and God towards him and I provided prayer. Patient responded well and showed signs of reduced fear. I also spent time listening to patient's spouse, Ariana, tell her story and I normalized her experience and encouraged self care.
--- NOTE | 2018-07-24 16:22 | NUR ---
SHIFT SUMMARY NO ACUTE CHANGES. PATIENT DENIES PAIN, NAUSEA, AND SHORTNESS OF BREATH. PATIENT HAD HEAD CT AND RENAL ULTRASOUND TODAY. SBA TO BR. AT BEDSIDE. CALL LIGHT IN REACH, WILL CONTINUE TO MONITOR.
--- NOTE | 2018-07-25 03:47 | NUR ---
SHIFT SUMMARY PATIENT HAD NO ACUTE CHANGES OBSERVED THIS SHIFT. AXOX 2 TO SELF AND FAMILY. ONE PERSON ASSIST TO BSC. PIV REMAINS INTACT. D5 1/2 NS FINISHED INFUSING X ONE BAG. DENIES PAIN, SOB, AND N/V. VSS/AFEBRILE. SPOUSE AT BEDSIDE T/O SHIFT. TAKES MEDS WHOLE WITH WATER. CALL LIGHT IN REACH. BED IN LOWEST POSITION. WILL CONTINUE TO MONITOR UNTIL DAY SHIFT NURSE ASSUMES CARE.
[2018-07-25 05:32] LABS: Hemoglobin 12.4 g/dL (13.5-17.5); Mean Corpuscular HGB 26.6 pg (26.0-34.0); Mean Corpuscular HGB Conc 31.8 g/dL (31.5-36.5); Mean Corpuscular Volume 84 fL (80-100); Mean Platelet Volume 9.6 fL (9.1-12.4); Platelet Count 219 K/mm3 (150-400); RDW Coefficient Variation 15.6 % (11.7-14.2); RDW Standard Deviation 46.8 fL (35.1-46.3); Red Blood Cell Count 4.67 M/mm3 (4.30-5.90); White Blood Cell Count 4.21 K/mm3 (4.00-11.30)
[2018-07-25 05:55] LABS: Albumin, Blood 2.6 g/dL (3.4-5.0); Albumin/Globulin Ratio 0.6 (0.8-1.8); Bilirubin, Total 0.2 mg/dL (0.1-1.0); Bun/Creatinine Ratio 19.9 (12.0-20.0); Creatinine, Blood 1.76 mg/dL (0.60-1.20); Globulin, Blood 4.5 g/dL (2.2-4.0); Potassium, Blood 4.8 mmol/L (3.5-5.5); Total Protein, Blood 7.1 g/dL (6.4-8.2)
--- NOTE | 2018-07-25 13:39 | NUR ---
Patient is confused today and still under the delusionthat his , Ariana is a fake or imposter Ariana. Patient was unable to tell me where he was or what day it is. Patient was frustrated by his bed alarm and but overall was pleasant and kind. Patient worked himself into tears by the story line in his head about his spouse. I reassured patient that his loves him and that he is loved by family and friends. He appeared to be comfortable with this remote mortgage underwriter and (I have known patient for well over a decade). Patient continues to be kind and is comforted by Bible verses and prayer. We held hands and prayed and patient held on after the prayer and said, "Thank you, " over and over.
--- NOTE | 2018-07-25 14:43 | NUR ---
SHIFT SUMMARY/TRANSFER TO SCU NO ACUTE CHANGES. PATIENT HAVING INCREASING EPISODES OF CONFUSION AND SETTING OFF BED AND CHAIR ALARMS FREQUENTLY. BECOMES ANXIOUS WHEN FAMILY IS NOT IN ROOM. PATIENT DENIES NAUSEA, PAIN, AND SHORTNESS OF BREATH. PATIENT TRANSFERED TO SPECIAL CARE UNIT. PATIENT TO HAVE MRI W/CONTRAST IN THE MORNING. REPORT GIVEN TO RECEIVING RN IN SCU.
--- NOTE | 2018-07-25 17:04 | NUR ---
SUMMARY PT TRANSFERRED TO SCU 346 FROM 354. HE IS PLEASANT/COOPERATIVE. ANSWERS MOST QUESTIONS CORRECTLY, A/O X 2-3. HE HAS SHOWN SOME SIGNS OF CONFUSION, STATE CONFUSION INCREASES ON AWAKENING FROM SLEEP. FAMILY AND MARRIAGE COUNSELLOR STATE WILL PLACE ON REMOTE MX. EDUCATED PT/ ON USE OF BED & CHAIR ALARMS. VSS
[2018-07-26 05:08] LABS: BASOPHILS ABSOLUTE AUTO 0.04 K/mm3 (0.00-0.23); BASOPHILS PERCENT AUTO 1 % (0-2); EOSINOPHILS ABSOLUTE AUTO 0.32 K/mm3 (0.00-0.68); EOSINOPHILS PERCENT AUTO 8 % (0-6); Hematocrit 35.3 % (37.0-53.0); Hemoglobin 11.5 g/dL (13.5-17.5); IMMATURE GRAN ABSOLUTE AUTO 0.02 K/mm3 (0.00-0.10); IMMATURE GRAN PERCENT AUTO 1 % (0-1); LYMPHOCYTES ABSOLUTE AUTO 1.24 K/mm3 (0.84-5.20); LYMPHOCYTES PERCENT AUTO 30 % (21-46); MONOCYTES ABSOLUTE AUTO 0.78 K/mm3 (0.16-1.47); MONOCYTES PERCENT AUTO 19 % (4-13); Mean Corpuscular HGB 26.5 pg (26.0-34.0); Mean Corpuscular HGB Conc 32.6 g/dL (31.5-36.5); Mean Platelet Volume 10.1 fL (9.1-12.4); NEUTROPHILS PERCENT AUTO 42 % (41-73); Platelet Count 224 K/mm3 (150-400); RDW Coefficient Variation 15.8 % (11.7-14.2); RDW Standard Deviation 46.9 fL (35.1-46.3); Red Blood Cell Count 4.34 M/mm3 (4.30-5.90)
[2018-07-26 05:11] LABS: Mean Corpuscular Volume 81 fL (80-100)
[2018-07-26 05:33] LABS: Albumin, Blood 2.7 g/dL (3.4-5.0); Albumin/Globulin Ratio 0.6 (0.8-1.8); Bilirubin, Total 0.4 mg/dL (0.1-1.0); Bun/Creatinine Ratio 16.2 (12.0-20.0); C-REACTIVE PROTEIN, EXT RANGE 8.42 mg/dL (0.000-0.300); Calcium, Blood 8.4 mg/dL (8.5-10.1); Creatinine, Blood 1.48 mg/dL (0.60-1.20); Globulin, Blood 4.3 g/dL (2.2-4.0); Magnesium, Blood 1.9 mg/dL (1.6-2.4); Phosphorus, Blood 1.5 mg/dL (2.5-4.9); Potassium, Blood 3.8 mmol/L (3.5-5.5)
--- NOTE | 2018-07-26 05:52 | NUR ---
SHIFT SUMMARY: PT HAS SEVERAL STATES OF CONFUSION TONIGHT. PT ATTEMPTS TO PULL OUT IVs, STATING HE DOES NOT BELIEVE HE NEEDS THEM ANYMORE. PT BECOMES WORKED UP AND STATES THERE IS A NEEDLE THROUGH HIS ARM AND HE NEEDS TO GO TO THE ER. SPENT TOTAL OF 1 HR IN PT ROOM REORIENTING AND DE-ESCALATING PT. PT GETS A FEW HRS OF SLEEP TONIGHT BEFORE HAVING A SIMILAR EPISODE AGAIN THIS AM. REPORTS PT IS MORE DISORIENTED IN THE MORNING AND BECOMES MORE ALERT THROUGH THE DAY. AT SHIFT ASSESSMENT AROUND 193, PT ALERT TO SELF, , YEAR. PT KNOWS HE IS AT A HOSPITAL, BUT UNAWARE OF WHICH HOSPITAL/CITY. REPORTS STATE. DOES NOT KNOW CURRENT PRESIDENT. PT DOES NOT ALWAYS ANSWER APPROPRIATELY AND SAYS OFF THE WALL THINGS AT TIMES. BECOMES TEARFUL OF PT STATE AND RECENT CHANGE IN HEALTH. CONSOLED PT c SUCCESS. THIS AM LABS REPORT SLIGHT IMPROVEMENT IN RENAL FUNCTION: GFR 50, CRE 1.48. NO OTHER CHANGES TO REPORT. WILL CONT TO MONITOR AND PROVIDE CARE UNTIL PRESUMED BY ONCOMING RN.
--- NOTE | 2018-07-26 11:41 | NUR ---
Patient is out for MRI when I enter room but patient's , Ariana, is present. Ariana tells me about the difficulties of the night and patient's altered mental status and how exhausted she is. I listen empathically, encourage self care, facilitate life/family review and provide a calming presence. Patient returns and is not making much sense but is in good spirits. OT arrives and so I cut visit short. I will continue to be available to patient and family.
[2018-07-26] MEDS ORDERED: ACET325 (15:30)
[2018-07-26] MEDS ORDERED: Ciloxan5 ML (15:35)
[2018-07-26] MEDS ORDERED: PRED5 (15:37)
[2018-07-26] MEDS ORDERED: SYNTHROID175 MCG PO (15:43)
[2018-07-26] MEDS ORDERED: Seroquel25 MG PO (16:09)
--- NOTE | 2018-07-26 16:46 | NUR ---
DISCHARGE PT HAD MRI HEAD TODAY. DR MUNGUIA REVIEW RESULTS. BACK TO TALK WITH PT/, STATE OK FOR D/C TODAY, PLACE ORDERS @ APPROX 1600. PT STATE FEEL READY FOR D/C. HE CONTINUES TO HAVE SOME MEMORY & THOUGHT PROCESSING DIFFICULTY. 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 [facility] D/C MEDICAL INSTRUMENT TECHNICIAN IN TO ARRANGE F/U. D/C INSTRUCT PROVIDED W EMPHASIS ON F/U WITH DR COLLAZO ONCOLOGIST. IV D/C INTACT. SCRIPTS FAXED TO [facility]REQUEST. W/C [facility] PROVIDED. PT/ STATE APPRECIATION, VERY PLEASANT.
== END 2018-07-26 17:10 | disposition home or self-care (01) | DRG 92 ==
LOC: ER 03:59 → MEDS 06:15 → ENPENDDIS 07-26 15:10 → MEDS 07-26 17:10
PROVIDERS: Emergency Medicine; Family Medicine; ADMIT Hospitalist
DX: G92 Toxic encephalopathy (principal); C64.1 Malignant neoplasm of right kidney, except renal pelvis; C78.01 Secondary malignant neoplasm of right lung; C79.31 Secondary malignant neoplasm of brain; C79.70 Secondary malignant neoplasm of unspecified adrenal gland; E23.0 Hypopituitarism; N17.9 Acute kidney failure, unspecified; T45.1X5A Adverse effect of antineoplastic and immunosuppressive drugs, initial encounter; Z90.5 Acquired absence of kidney; E03.9 Hypothyroidism, unspecified; N40.1 Benign prostatic hyperplasia with lower urinary tract symptoms; N18.3 Chronic kidney disease, stage 3 (moderate); E86.9 Volume depletion, unspecified; Z85.528 Personal history of other malignant neoplasm of kidney
CPT/HCPCS: 36415; 51701; 70450; 70551; 70553; 71046; 76770; 80053; 80156; 81001; 82533; 83735; 84100; 84443; 85025; 85027; 85651; 86140; 87086; 96361; 96374; 97110; 97116; 97161; 97166; 97530; 99285-25; A9577; J0696; J1650; J1720; J7030; J7060; J7512

== ENCOUNTER 2018-10-24 18:06 | Inpatient (IN) | payer OTHER ==
[~2018-10-24] VITALS: Ht 182.9 cm; Wt 81.0 kg
[~2018-10-24 18:06] MED LIST changes: +ACET325; +CABOMETYX60 MG PO; -CARB200 PO; +Ciloxan5 ML; +PRED5; -SUMA25 PO; +Seroquel25 MG PO
[2018-10-24 18:42] LABS: BASOPHILS ABSOLUTE AUTO 0.07 K/mm3 (0.00-0.23); BASOPHILS PERCENT AUTO 1 % (0-2); EOSINOPHILS ABSOLUTE AUTO 1.76 K/mm3 (0.00-0.68); EOSINOPHILS PERCENT AUTO 14 % (0-6); Hematocrit 40.5 % (37.0-53.0); Hemoglobin 13.1 g/dL (13.5-17.5); IMMATURE GRAN ABSOLUTE AUTO 0.31 K/mm3 (0.00-0.10); IMMATURE GRAN PERCENT AUTO 2 % (0-1); LYMPHOCYTES ABSOLUTE AUTO 2.26 K/mm3 (0.84-5.20); LYMPHOCYTES PERCENT AUTO 18 % (21-46); MONOCYTES PERCENT AUTO 9 % (4-13); Mean Corpuscular HGB 30.7 pg (26.0-34.0); Mean Corpuscular HGB Conc 32.3 g/dL (31.5-36.5); Mean Corpuscular Volume 95 fL (80-100); Mean Platelet Volume 8.9 fL (9.1-12.4); NEUTROPHILS ABSOLUTE AUTO 7.15 K/mm3 (1.96-9.15); NEUTROPHILS PERCENT AUTO 56 % (41-73); Platelet Count 319 K/mm3 (150-400); RDW Coefficient Variation 15.1 % (11.7-14.2); RDW Standard Deviation 53.4 fL (35.1-46.3); Red Blood Cell Count 4.27 M/mm3 (4.30-5.90); White Blood Cell Count 12.75 K/mm3 (4.00-11.30)
[2018-10-24 18:44] LABS: Albumin, Blood 3.4 g/dL (3.4-5.0); Albumin/Globulin Ratio 0.7 (0.8-1.8); Bilirubin, Total 0.4 mg/dL (0.1-1.0); Bun/Creatinine Ratio 11.3 (12.0-20.0); Calcium, Blood 9.6 mg/dL (8.5-10.1); Creatinine, Blood 2.03 mg/dL (0.60-1.20); Globulin, Blood 5.2 g/dL (2.2-4.0); Potassium, Blood 4.7 mmol/L (3.5-5.5); Total Protein, Blood 8.6 g/dL (6.4-8.2)
[2018-10-24 19:14] LABS: Source, Urine Catheter
[2018-10-24 19:18] LABS: Bilirubin, Urine Neg (Neg); Blood, Urine 4+ (Neg); Glucose Qualitative, Urine Neg (Neg); Ketones, Urine Neg (Neg); Leukocyte Esterase, Urine Neg (Neg); Nitrite, Urine Neg (Neg); Protein, Urine 1+ (Neg); Specific Gravity, Urine 1.015 (1.003-1.022); Urobilinogen, Urine NORM (Normal)
[2018-10-24 19:32] LABS: U Amphetamine Screen Not Detected; U Barbituate Screen Not Detected; U Benzodiazapine Screen Not Detected; U Buprenorphine Screen Not Detected; U Cannabinoids Screen Not Detected; U Cocaine Screen Not Detected; U Methadone Screen Not Detected; U Methamphetamine Screen Not Detected; U Opiates Screen Not Detected; U Oxycodone Screen Not Detected; U Phencyclidine Screen Not Detected; U Propoxyphene Screen Not Detected
[2018-10-24 19:36] LABS: Color, Urine Yellow (P-Yellow)
[2018-10-24 19:37] LABS: White Blood Cells, Urine 0-2 /hpf (0-5)
[2018-10-24 19:38] LABS: Amorphous Light (0-Heavy); Appearance, Urine Clear (Clear); Bacteria Rare /hpf; Squamous Epithelial Cells Few /hpf (Few)
[2018-10-24 20:13] LABS: Carbamazepine 10.9 ug/mL (4.0-12.0)
[2018-10-24] MEDS ORDERED: CARB200 PO (21:21)
[2018-10-24] MEDS ORDERED: SYNTHROID175 MCG PO (21:23)
[2018-10-24] MEDS ORDERED: SUMA25 PO (21:23)
[2018-10-24] MEDS ORDERED: HYDCOR10 PO (21:25)
[2018-10-24] MEDS ORDERED: PREG75 PO (21:28)
[2018-10-24] MEDS ORDERED: Hydrocortisone5 MG PO (21:40)
[2018-10-24] MEDS ORDERED: Wal-Phed30 MG PO (21:41)
[2018-10-25 01:18] LABS: Adenovirus F 40/41 Not Detected (NOT DETECT); Astrovirus Not Detected (NOT DETECT); Campylobacter Sp Not Detected (NOT DETECT); Cryptosporidium Not Detected (NOT DETECT); Cyclospora Cayetanensis Not Detected (NOT DETECT); E. Coli O157 Not Detected (NOT DETECT); Entamoeba Histolytica Not Detected (NOT DETECT); Enteroaggregative E. coli-EAEC Not Detected (NOT DETECT); Enteropathogenic E. coli-EPEC Not Detected (NOT DETECT); Enterotoxigenic E. coli-ETEC Not Detected (NOT DETECT); Giardia Lamblia Not Detected (NOT DETECT); Norovirus GI/GII Not Detected (NOT DETECT); Plesiomonas Shigelloides Not Detected (NOT DETECT); Rotavirus A Not Detected (NOT DETECT); Salmonella Sp Not Detected (NOT DETECT); Sapovirus Not Detected (NOT DETECT); Shiga Toxin-prod E. coli-STEC Not Detected (NOT DETECT); Shigella/Enteroin E. coli-EIEC Not Detected (NOT DETECT); Vibrio Cholerae Not Detected (NOT DETECT); Vibrio Sp Not Detected (NOT DETECT); Yersinia Enterocolitica Not Detected (NOT DETECT)
--- NOTE | 2018-10-25 03:08 | NUR ---
ASSUMED PT CARE AT 2232 PT ARRIVED ON UNIT VIA STRETCHER. RESPONDING TO VERBAL STIMULI AND ABLE TO FOLLOW COMMANDS. PER ED NURSE PT'S BLOOD PRESSURES STARTED TRENDING DOWN WITH SYSTOLIC BP'S IN THE 90'S THE LAST READING. UPON HOOKING PT UP TO MONITOR AND RETRIEVING FIRST BP; PT SHOWED LOW SYSTOLIC AND LOW MAP READINGS. NO ORDERS ENTERED INTO THE SYSTEM D/T SYSTEM BEING DOWN. CALLED DR. MCKINNEY WHO GAVE ORDERS FOR TWO MORE LITERS BOLUSED PLUS A MAINTENANCE OF NS AT 200MLS/HR. ONCE FIRST BOLUS STARTED; PT'S BP QUICKLY RESPONDED TO THE FLUIDS WITH SBP INCREASING BACK UP TO 100-120'S. UPON ARRIVAL PT ONLY HAD ONE 20G TO RIGHT AC; TONGUE LINING STITCHER STARTED A POWERGLIDE TO RIGHT UPPER ARM D/T PT HAVING POOR ACCESS ELSEWHERE. INITIATED DROPLET PRECAUTIONS D/T PT'S HX OF MENINGITIS WITH A POSSIBLITY OF HIS ENCEPHALOPATHY BEING R/T MENINGITIS. FAMILY IS BEING COMPLIANT WITH GOWNING UP AND DOWN AND ARE UNDERSTANDING OF PRECAUTIONS. DISCUSSED WITH PT'S WISHES AND ASKED ABOUT ADVANCED DIRECTIVE. STATES THEY HAVE TALKED ABOUT IT; BUT HAVEN'T WRITTEN ANYTHING DOWN. OFFERED AN ADVANCED DIRECTIVE PACKET, WHICH THE DECLINED. SHE STATED HIS WISHES ARE NOT TO HAVE ANY "ARTIFICIAL" LIFE SUSTAINING MEASURES, SUCH BEING ON A VENTILATOR. SHE DOES STATE HE WOULD WANT CPR, DEFIBRILLATION, MEDICATIONS, A CENTRAL LINE IF NEED BE, AND EVEN VASOPRESSORS; HOWEVER, HE JUST DOESN'T WANT TO BE INTUBATED. PT CONTINUES TO BE RESPONSIVE TO VERBAL STIMULI AND FOLLOWS DIRECTIONS APPROPRIATELY; STILL CONFUSED AT BASELINE, BUT RECOGNIZES FAMILY. STATES HE IS COMFORTABLE AND DENIES ANY PAIN. PLACED RECTAL TUBE D/T TWO LIQUIDS BM'S THIS SHIFT; SENT GI PANEL THAT CAME BACK NEGATIVE. IS SLEEPING IN ROOM. FAMILY HAS BEEN PLEASANT AND COOPERATIVE. CALL LIGHT IS WITHIN REACH, BUT PT HAS BEEN VISUALLY CHECKED ON FREQUENTLY.
[2018-10-25 03:27] LABS: BASOPHILS ABSOLUTE AUTO 0.05 K/mm3 (0.00-0.23); BASOPHILS PERCENT AUTO 0 % (0-2); EOSINOPHILS ABSOLUTE AUTO 0.87 K/mm3 (0.00-0.68); EOSINOPHILS PERCENT AUTO 8 % (0-6); Hematocrit 34.1 % (37.0-53.0); Hemoglobin 10.9 g/dL (13.5-17.5); IMMATURE GRAN ABSOLUTE AUTO 0.18 K/mm3 (0.00-0.10); IMMATURE GRAN PERCENT AUTO 2 % (0-1); LYMPHOCYTES ABSOLUTE AUTO 1.12 K/mm3 (0.84-5.20); LYMPHOCYTES PERCENT AUTO 10 % (21-46); MONOCYTES ABSOLUTE AUTO 0.73 K/mm3 (0.16-1.47); MONOCYTES PERCENT AUTO 7 % (4-13); Mean Corpuscular HGB 30.1 pg (26.0-34.0); Mean Corpuscular Volume 94 fL (80-100); Mean Platelet Volume 8.7 fL (9.1-12.4); NEUTROPHILS ABSOLUTE AUTO 8.21 K/mm3 (1.96-9.15); NEUTROPHILS PERCENT AUTO 74 % (41-73); Platelet Count 235 K/mm3 (150-400); RDW Standard Deviation 52.3 fL (35.1-46.3); Red Blood Cell Count 3.62 M/mm3 (4.30-5.90); White Blood Cell Count 11.16 K/mm3 (4.00-11.30)
[2018-10-25 03:55] LABS: Albumin, Blood 2.3 g/dL (3.4-5.0); Albumin/Globulin Ratio 0.5 (0.8-1.8); Bilirubin, Total 0.2 mg/dL (0.1-1.0); Bun/Creatinine Ratio 12.5 (12.0-20.0); Calcium, Blood 7.6 mg/dL (8.5-10.1); Creatinine, Blood 1.68 mg/dL (0.60-1.20); Globulin, Blood 4.2 g/dL (2.2-4.0); Potassium, Blood 4.1 mmol/L (3.5-5.5); Total Protein, Blood 6.5 g/dL (6.4-8.2)
--- NOTE | 2018-10-25 05:47 | NUR ---
END OF SHIFT SUMMARY PT IS MORE ALERT AND ORIENTED TO PERSON, FAMILY, PLACE, AND IS FOLLOWING DIRECTIONS. 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 PLACED CALL TO DR. MCKINNEY IN REGARDS TO CALCIUM LEVEL, VANCO CONSULT, AND POSITIVE 3L IN FLUID. NEW ORDERS TO DECREASE NS TO 100MLS/HR; DRAW STAT IONIZED CALCIUM AND LACTIC ACID, WELL DR. MCKINNEY SAID HE WOULD ENTER ORDERS FOR VANCO CONSULT. IS STILL AT BEDSIDE. FAMILY HAS TRAVELED FROM OUT OF TOWN AND WERE VISITING FOR A SHORT WHILE. ONCE PT WAS MORE ALERT AND AROUSABLE HE REQUESTED THAT THE RECTAL TUBE BE REMOVED D/T IT BEING UNCOMFORTABLE. UPON ASSESSING RECTAL TUBE PT HAD NOTED LOOSE STOOL AROUND RECTAL TUBE. EDUCATED PT ON BENEFITS OF RECTAL TUBE AND HE REQUESTED THAT IT BE REMOVED. PT IS NORMALLY CONTINENT OF BOWEL AND BLADDER AT BASELINE. PT HAS HAD A TOTAL OF THREE LIQUID BM'S THIS SHIFT THAT HAVE BEEN BROWN, AND GRAINY IN COLOR/TEXTURE. PT HAS BEEN REPOSITIONED FOR COMFORT AND IS ABLE TO COMMUNICATE HIS NEEDS, WHOM HIS GENERALLY RELAYS TO STAFF. CALL LIGHT IS WITHIN REACH; HOWEVER, PT IS UNABLE TO SEE IT; THEREFORE, FREQUENT VISUAL CHECKS ARE BEING DONE. WILL CONTINUE TO MONITOR UNTIL REPORT IS HANDED OFF TO ONCOMING RN.
--- NOTE | 2018-10-25 07:15 | NUR ---
AM ASSESSMENT: PT IS ALERT AND ORIENTED X3. PLEASANT AND COOPERATIVE WITH CARE. SPEECH IS CLEAR AND PT ANSWERS QUESTIONS APPOPRIATELY. PT IS W/C BOUND AT HOME. ASSIST WTIH ADL'S PRN. PT REPORTS CHRONIC PAIN 5/10 RELATED MOSTLY TO HX: MS. WILL MEDICATE PER ORDERS. LUNGS ARE CLEAR T/O BILATERALLY. SATS >90% ON RA. HR REGULAR, SR-90'S RANGE. PT HAD SHEATH IN PLACE TO RT POPLITEAL AREA WITH TPA @ 0.5MG/HR (10ML/HR) AND HEPARIN GTT INFUSING PERIPHERALLY TO AT SET RATE PER ORDERS. PT TO RETURN TO BRAILLE TRANSCRIBER THIS AM. ABD SOFT/ROUND/NON-TENDER TO PALPATION. PT NPO FOR PROCEDURE. CHRONIC CHE CATHETER IN PLACE DRAINING, CLEAR, YELLOW URINE TO GRAVITY. PT HAS HEALING DECUBITIS PRESENT TO COCCYX AREA AND IMPROVING ERYTHEMA PRESENT TO RT ANKLE, EXTENDING UP CALF R/T DVT.
--- NOTE | 2018-10-25 07:45 | NUR ---
AM ASSESSMENT: PT WAKES UP EASILY TO VERBAL STIMLULI UPON THIS RN ENTERING RM. PT IS ALERT AND ORIENTED TO HIMSELF/. NOT SURE ON PLACE/TIME/DATE/SITUATION. SPEECH IS GARBLED AND DIFFICULT TO UNDERSTAND AND PT SLOW TO ANSWER QUESTIONS. 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 WEAKNESS IN UE'S AND MINIMAL MOVEMENT LE'S. PT IS BEDBOUDN AT HOME. LUNGS ARE DIMINISHED T/O BILATERALLY. SATS >90% ON RA. PT IN [place] PRECAUTIONS AT THIS TIME FOR R/O MENINGITIS. HR DISTANT, REGULAR, SR- 60'S RANGE. POOR PERIPHERAL PULSES IN THE BILATERAL LE'S. POWERGLIDE TO THE RT UA WITH NS @ 100ML/HR. CALCIUM GLUCONATE IVPB STARTED PER ORDERS FOR LOW CA LEVEL THIS AM. CHE CATH DRAINING CLEAR, MURALI COLORED URINE TO GRAVITY. NO BM YET THIS AM, HOWEVER, HOLDING BOWEL CARE MEDS THIS AM FOR LOOSE STOOLS ON NOCS. STOOL PANEL SENTS ON NOCS. -DNI STATUS.
[2018-10-25 08:34] LABS: Vancomycin, Trough 19.6 ug/mL (5.0-10.0)
--- NOTE | 2018-10-25 09:03 | NUR ---
DR WILLARD IN TO ASSESS PT. UPDATED HER ON PT'S STATUS. DR WILLARD DISCUSSED PT'S WISHES WITH RE: FURTHER TX AND CODE STATUS, PT REMAINS SLIGHTLY CONFUSED AT THIS TIME.
--- NOTE | 2018-10-25 10:00 | NUR ---
FAITH IN TO MEET WITH PT AND FAMILY AND PROVIDE SPIRITUAL/PALLATIVE SUPPORT.
--- NOTE | 2018-10-25 11:07 | NUR ---
PT TAKEN TO EVP MANAGING DIRECTOR AT THIS TIME PER BED AND [facility] STAFF.
--- NOTE | 2018-10-25 11:17 | NUR ---
I met with patient's Ariana just outside the room and she informed me that the cancer has grown (duobled since July and spread into the nasal cavity). I conducted a debriefing of the traumatic events of the previous evening prior to and including his hospital stay. I provided emotional support and normalized her experience. I then entered patient's room and talked with patient. Patient wanted to know what led up to him being in the hospital. Patient is showing significant improvement this morning (mental clarity, speech and alertness have increased) over what Ariana described patient's condition privious PM. I provided companionship, spirtual guidance and prayer. Patient responded well and displayed evidence of an elevated mood.
--- NOTE | 2018-10-25 14:47 | NUR ---
ATTEMPTED TO CALL REPORT, HOWEVER, RN IS UNAVAILABLE AT THIS TIME AND WILL CALL WHEN ABLE.
--- NOTE | 2018-10-25 14:58 | NUR ---
REPORTED OFF TO EFRAIN DARNELL WHOM WILL ASSUME CARE OF PT AFTER HE TNX TO 358.
--- NOTE | 2018-10-25 15:09 | NUR ---
PT TNX'D VIA BED BY ELIZABETH SOLIZ TO 358. PT BELONGINGS, CHART, MEDICATIONS SENT WITH PT.
--- NOTE | 2018-10-25 15:20 | NUR ---
PATIENT TRANSFERRED VIA BED FROM ICU 4 TO ROOM 358. AWAKE. STATES HE IS IN THE HOSPITAL, NAME AND BIRTHDAY. STATES MEMORY POOR RE: EVENTS PRIOR TO ADMIT. VSS. DENIES PAIN, NAUSEA.CORKING MACHINE OPERATOR AND PEDAL STRENGTH EQUAL. HRR. LS CLEAR T/O. ABLE TO HOLD CUP AND DRINK FROM STRAW W/O S/SX OF SWALLOWING DIFFICULTY. FAMILY TO BEDSIDE. CONT TO MONITOR.
--- NOTE | 2018-10-25 17:34 | NUR ---
PATIENT STATES BEGINNING OF MARIE. DR WILLARD CALLED AND LEFT MESSAGE. IMITREX PO ADMIN PER NEW ORDER. CONT TO MONITOR. AT BEDSIDE.
--- NOTE | 2018-10-25 18:50 | NUR ---
PATIENT STATES HIS HEAD 'FEELS FINE NOW....I'M JUST TIRED.'
--- NOTE | 2018-10-26 04:51 | NUR ---
SHIFT SUMMARY ALERT TO SELF, FAMILY AND PLACE. FOLLOWS DIRECTION. BECOMES CONFUSED AT TIMES, BUT IS EASILY RE-DIRECTABLE. NO ACUTE CHANGES NOTED OVERNIGHT. ABX THERAPY CONTINUES; PG PATENT. STATES DOES HAVE RESTLESS LEG AND STATES "NORMALLY TAKES TYLENOL THAT USALLY SEEMS TO HELP". AT BEDSIDE FOR MUCH OF NIGHT. APPEARED TO REST OFF AND ON THROUGHOUT SHIFT. CHE PATENT AND DRAINING TO GRAVITY. NO ACUTE CHANGES NOTED OVERNIGHT. BED REMAINS IN LOWEST POSITION. CALL LIGHT WITHIN REACH. WCTM. REPORT TO ONCOMING RN.
[2018-10-26 05:47] LABS: BASOPHILS ABSOLUTE AUTO 0.02 K/mm3 (0.00-0.23); BASOPHILS PERCENT AUTO 0 % (0-2); EOSINOPHILS PERCENT AUTO 0 % (0-6); Hematocrit 31.6 % (37.0-53.0); Hemoglobin 10.6 g/dL (13.5-17.5); IMMATURE GRAN ABSOLUTE AUTO 0.11 K/mm3 (0.00-0.10); IMMATURE GRAN PERCENT AUTO 1 % (0-1); LYMPHOCYTES PERCENT AUTO 8 % (21-46); MONOCYTES ABSOLUTE AUTO 0.45 K/mm3 (0.16-1.47); MONOCYTES PERCENT AUTO 4 % (4-13); Mean Corpuscular HGB 31.4 pg (26.0-34.0); Mean Corpuscular HGB Conc 33.5 g/dL (31.5-36.5); Mean Corpuscular Volume 94 fL (80-100); Mean Platelet Volume 9.1 fL (9.1-12.4); NEUTROPHILS ABSOLUTE AUTO 10.69 K/mm3 (1.96-9.15); NEUTROPHILS PERCENT AUTO 87 % (41-73); Platelet Count 267 K/mm3 (150-400); RDW Coefficient Variation 14.6 % (11.7-14.2); RDW Standard Deviation 50.4 fL (35.1-46.3); Red Blood Cell Count 3.38 M/mm3 (4.30-5.90); White Blood Cell Count 12.27 K/mm3 (4.00-11.30)
[2018-10-26 06:05] LABS: Albumin, Blood 2.5 g/dL (3.4-5.0); Albumin/Globulin Ratio 0.6 (0.8-1.8); Bilirubin, Total 0.3 mg/dL (0.1-1.0); Bun/Creatinine Ratio 14.3 (12.0-20.0); Calcium, Blood 8.8 mg/dL (8.5-10.1); Creatinine, Blood 1.33 mg/dL (0.60-1.20); Globulin, Blood 4.5 g/dL (2.2-4.0); Potassium, Blood 4.2 mmol/L (3.5-5.5)
[2018-10-26 09:36] LABS: Vancomycin, Trough 19.3 ug/mL (5.0-10.0)
--- NOTE | 2018-10-26 11:28 | NUR ---
Patient is much more clear in his train of thought and articulate in his speech. Patient's mood is elevated and he continues to find strength through his vielka. Patient's spouse, Ariana, is present and she admits to being extremely tired and emotionally exhausted from the ups and downs of patient's condition. I provide emotional support, a calming presence, pastoral enrollment counselor, and prayer. I also encourage self-care and helpful attitudes and practices. Patient and Ariana respond well and show signs of a restored vielka. They voice appreciation for my visit. I will continue to remain available to patient and family.
--- NOTE | 2018-10-26 18:44 | NUR ---
PATIENT MOSTLY ORIENTED THIS SHIFT, CONTINUES TO HAVE SOME CONFUSION WHEN WAKING UP. AT BEDSIDE FOR MOST OF SHIFT. CHE D/C'D TODAY AT 1545 AND PATIENT HAS NOT VOIDED YET. TOLERATING DIET. C/O MILD PAIN AND RESTLESS LEGS. NOTIFIED AND MERIPEX ORDERED TO TREAT. VSS THIS SHIFT, ON RA. POWERGLIDE TO YUMIKO WNL. NS @100ML/HR INFUSING. AMBULATED X1 TODAY IN HALLS WITH 4WW, TOLERATED WELL. HOPES TO D/C TOMORROW.
--- NOTE | 2018-10-27 07:48 | NUR ---
NO ACUTE CHANGES THIS SHIFT. PATIENT REMAINS STABLE.
--- NOTE | 2018-10-27 18:26 | NUR ---
PATIENT WORKED WITH PT TODAY AND AMBULATED IN HALLS. CHE D/C'D AT 1545 AFTER BLADDER TRAINING. ORDERS FOR STRAIGHT CATH Q6 HOURS IF PATIENT UNABLE TO VOID. RESTLESS LEGS HAVE IMPROVED WITH MEDICATIONS. TOLERATING REGULAR DIET. SKIN INTACT. FALL PRECAUTIONS IN PLACE PER UNIT PROTOCOL.
--- NOTE | 2018-10-28 00:24 | NUR ---
PATIENT FOUND TO HAVE LARGE EPISODE OF URINARY INCONTINENCE IN BED. PATIENT BLADER SCANNED AT 2100 AND FOUND TO HAVE 986mL OF URINE IN BLADDER. EXPLAINED TO PATIENT AND PATIENTS THE NEED TO PERFORM A STRAIGHT CATH ON PATIENT. PATIENTS STATED "BUT THAT WONT HELP WITH HIS PEEING ON HIS OWN". GOT PATIENT UP TO THE TOILET TO ALLOW HIM TO TRY TO URINATE. PATIENT URINATED SMALL AMOUNT INTO TOILET THEN WAS RETURNED TO BED AFTER LINENS CHANGED. PATIENT PROVIDED WITH URINAL AND GIVEN SOME TIME TO ATTEMPT TO URINATE. 200mL URINATED IN URINAL AND BLADDER SCAN PERFORMED AND FOUND TO HAVE 850mL IN BLADDER. AGAIN EXPLAINED TO PATIENT AND THE NEED FOR STRAIGHT CATH BUT WOULD RATHER WAIT AND LET PATIENT URINATE ON OWN. WILL ATTEMPT BLADDER SCAN AND STRAIGHT CATH AGAIN IN A FEW HOURS
[2018-10-28] MEDS ORDERED: DEXA4 PO (11:51)
[2018-10-28] MEDS ORDERED: PRAM.125 PO (11:51)
[2018-10-28] MEDS ORDERED: TAMS.4ER PO (11:51)
[2018-10-28] MEDS ORDERED: HYDCOR10 PO (11:52)
--- NOTE | 2018-10-28 13:00 | NUR ---
PATIENT D/C'D TO HOME WITH WIF. RX MEDICATIONS FAXED TO [facility] ON [address]. D/C INSTRUCTIONS AND EDUCATION DISCUSSED WITH AND COPY PROVIDED. DENIES ANY FURTHER QUESTIONS OR CONCERNS.
== END 2018-10-28 13:59 | disposition home or self-care (01) | DRG 54 ==
LOC: ER 18:06 → ERHOLD 22:13 → ICUE 22:26 → MEDS 10-25 15:19 → ENPENDDIS 10-28 11:24 → MEDS 10-28 13:59
PROVIDERS: Emergency Medicine; Internal Medicine; Pharmacist; ADMIT Hospitalist
DX: C79.31 Secondary malignant neoplasm of brain (principal); G92 Toxic encephalopathy; E27.40 Unspecified adrenocortical insufficiency; C64.9 Malignant neoplasm of unspecified kidney, except renal pelvis; N17.9 Acute kidney failure, unspecified; E87.2 Acidosis; E23.0 Hypopituitarism; I95.9 Hypotension, unspecified; N18.3 Chronic kidney disease, stage 3 (moderate); R33.9 Retention of urine, unspecified; N40.1 Benign prostatic hyperplasia with lower urinary tract symptoms; Z90.5 Acquired absence of kidney; G25.81 Restless legs syndrome
CPT/HCPCS: 0097U; 36415; 51702; 70450; 71045; 80053; 80156; 80202; 81001; 82306; 82330; 82947; 83605; 84100; 84443; 85025; 87040; 93005; 93010; 96365-59; 96366-59; 96367-59; 96375-59; 97116; 97162; 99285-25; A9270-GY; C1751; C9113; J0290; J0610; J0692; J0696; J1100; J1644; J1650; J1720; J2310; J3370; J7030; J7050; J7060; J8499

== ENCOUNTER 2019-01-14 11:06 | Inpatient (IN) | payer OTHER ==
[~2019-01-14] VITALS: Ht 177.8 cm; Wt 84.6 kg
[~2019-01-14 11:06] MED LIST changes: +CARB200 PO; +DEXA4 PO; +HYDCOR10 PO; +Hydrocortisone5 MG PO; +PRAM.125 PO; +PREG75 PO; +SUMA25 PO; +SYNTHROID175 MCG PO; +TAMS.4ER PO; +Wal-Phed30 MG PO
[2019-01-14 13:32] LABS: Alanine Aminotransfer (ALT/SGP 49 U/L (12-78); Albumin, Blood 2.7 g/dL (3.4-5.0); Albumin/Globulin Ratio 0.6 (0.8-1.8); Alk Phos 77 U/L (50-136); Anion Gap 5 mmol/L (6-16); Aspartate Aminotrans (AST/SGOT 42 U/L (12-37); Bilirubin, Total 0.5 mg/dL (0.1-1.0); Blood Urea Nitrogen 31 mg/dL (8-24); Bun/Creatinine Ratio 33.3 (12.0-20.0); CO2, Blood 29 mmol/L (21-32); Calcium, Blood 9.2 mg/dL (8.5-10.1); Chloride, Blood 106 mmol/L (98-108); Creatinine, Blood 0.93 mg/dL (0.60-1.20); Globulin, Blood 4.7 g/dL (2.2-4.0); Glomerular Filtration Rate >60 (60-); Glucose, Blood 107 mg/dL (70-99); Potassium, Blood 5.1 mmol/L (3.5-5.5); Sodium, Blood 140 mmol/L (136-145); Total Protein, Blood 7.4 g/dL (6.4-8.2)
[2019-01-14 13:49] LABS: Hematocrit 42.7 % (37.0-53.0); Hemoglobin 14.1 g/dL (13.5-17.5); IMMATURE GRAN ABSOLUTE AUTO 0.71 K/mm3 (0.00-0.10); IMMATURE GRAN PERCENT AUTO 8 % (0-1); Mean Corpuscular HGB 34.6 pg (26.0-34.0); Mean Corpuscular Volume 105 fL (80-100); NRBC ABSOLUTE 0.23 K/mm3 (0.00-0.02); NRBC Auto 2.7 /100 WBC (0.0-0.2); RDW Coefficient Variation 19.4 % (11.7-14.2); RDW Standard Deviation 73.4 fL (35.1-46.3); Red Blood Cell Count 4.07 M/mm3 (4.30-5.90)
[2019-01-14 14:49] LABS: BAND PERCENT MAN 6 % (0-8); BASOPHILS PERCENT MAN 0 % (0-2); EOSINOPHILS PERCENT MAN 0 % (0-6); LYMPHOCYTES PERCENT MAN 8 % (21-46); METAMYELOCYTE PERCENT MAN 2 % (0-0); MONOCYTES PERCENT MAN 7 % (4-13); SEG NEUTROPHILS PERCENT MAN 77 % (41-73); TOTAL CELLS COUNTED 100
[2019-01-14 14:50] LABS: Mean Platelet Volume 10.8 fL (9.1-12.4); Platelet Count 173 K/mm3 (150-400)
[2019-01-14 15:07] LABS: Source, Urine Catheter
[2019-01-14 15:34] LABS: Appearance, Urine Clear (Clear); Bilirubin, Urine Neg (Neg); Blood, Urine 1+ (Neg); Color, Urine Yellow (P-Yellow); Glucose Qualitative, Urine Neg (Neg); Ketones, Urine Neg (Neg); Leukocyte Esterase, Urine Neg (Neg); Nitrite, Urine Neg (Neg); Protein, Urine 1+ (Neg); Urobilinogen, Urine NORM (Normal)
[2019-01-14 15:35] LABS: Bacteria Few /hpf; Squamous Epithelial Cells Not Seen /hpf (Few); White Blood Cells, Urine 0-2 /hpf (0-5)
--- NOTE | 2019-01-14 17:52 | NUR ---
Initial Visit: Pt in ER with history of brain and renal cancer. is at bedside, pt not responsive at this time. reports that pt has lost ability to ambulate and is now incontinent. She reports that lately, he has only been able to say, "I love you" and other small phrases for the last couple weeks. When he lost his ability to get up today, she had him brought to the ER. Pt appears comfortable at this time. She states that he has not been in pain. Ariana, , is having difficulty making choices. Comfort care and hospice options discussed. She is fixated on her inability to take care of him anymore. She doesn't want him placed, however, she is hesitant for caregivers. She shows signs of extreme caregiver stress. She has spent months in [place] getting him vitamin infusions, and continues to give him the infusions through his mediport at home. She does not want him to have chest compressions/CPR, and she does not want him to have intubation. Established DNR/DNI code status. She states, "I will have to talk to him about that when he wakes up." She is hesitant to make any choices for him and discussion was largely unproductive due to her uncertainty of what to do at this time. She repeats over and over that she is unable to take care of him. She doesn't want him placed on comfort care. She states, "this has happened before and he woke up after having antibiotics." She is aware that his brain tumor is worsening and that he has a sinus infection. Provided card for contact information. Spoke to ER social service assistant, Ramandeep. She agreed to follow up with Ariana for reassurance.
[2019-01-14] MEDS ORDERED: Florastor250 MG PO (19:21)
[2019-01-14] MEDS ORDERED: THERA1 EACH PO (19:21)
--- NOTE | 2019-01-14 21:20 | NUR ---
ADMISSION NOTE PT ARRIVED TO UNIT VIA STRETCHER, 3 STAFF REQUIRED FOR SLIDE TRANSFER. PT IS ALERT BUT LETHARGIC. SAYS THIS IS IMPROVEMENT. PT ORIENTED X2, ABLE TO FOLLOW DIRECTIONS AND IDENTIFY SELF AND . BELIEVES HE IS IN [facility]. REPORTS MONTH IS MAY. UNABLE TO STATE YEAR.
--- NOTE | 2019-01-14 21:59 | NUR ---
MEDIPORT TO R CHEST WALL PT HAS MEDIPORT TO R CHEST WALL, STITCHED IN WITH SUTURES. GAUZE PAD AND TRANSPARENT TAPE OVER SITE. STATES MEDIPORT WAS PLACED IN [place] ABOUT TWO MONTHS AGO AND HAS NOT BEEN CHANGED SINCE. STATES SHE ADMINISTERS VITAMIN INFUSIONS FROM [place] 3X/WEEK. MEDIPORT SITE APPEARS WNL, NO REDNESS OR HEAT NOTED. PLACED CALL TO IZZY FRANK, TO COME UP AND ASSESS SITE. INFORMED AND PATIENT.
--- NOTE | 2019-01-14 22:45 | NUR ---
MEDIPORT IS TO NOT BE USED WHILE AT HOSPITAL. DRESSING TO BE CHANGED PER IZZY FRANK AND THEN LEFT ALONE. DRESING CHANGE COMPLETE WITH GAUZE AND TRANSPARENT TAPE. SITE WNL, CDI.
[2019-01-15 04:53] LABS: BASOPHILS ABSOLUTE AUTO 0.02 K/mm3 (0.00-0.23); BASOPHILS PERCENT AUTO 0 % (0-2); EOSINOPHILS PERCENT AUTO 0 % (0-6); Hematocrit 31.3 % (37.0-53.0); Hemoglobin 10.2 g/dL (13.5-17.5); IMMATURE GRAN ABSOLUTE AUTO 0.35 K/mm3 (0.00-0.10); IMMATURE GRAN PERCENT AUTO 6 % (0-1); LYMPHOCYTES ABSOLUTE AUTO 0.69 K/mm3 (0.84-5.20); LYMPHOCYTES PERCENT AUTO 11 % (21-46); MONOCYTES ABSOLUTE AUTO 0.62 K/mm3 (0.16-1.47); MONOCYTES PERCENT AUTO 10 % (4-13); Mean Corpuscular HGB 34.6 pg (26.0-34.0); Mean Corpuscular HGB Conc 32.6 g/dL (31.5-36.5); Mean Corpuscular Volume 106 fL (80-100); NEUTROPHILS ABSOLUTE AUTO 4.66 K/mm3 (1.96-9.15); NEUTROPHILS PERCENT AUTO 74 % (41-73); NRBC ABSOLUTE 0.02 K/mm3 (0.00-0.02); NRBC Auto 0.3 /100 WBC (0.0-0.2); Platelet Count 127 K/mm3 (150-400); RDW Coefficient Variation 18.2 % (11.7-14.2); RDW Standard Deviation 70.4 fL (35.1-46.3); Red Blood Cell Count 2.95 M/mm3 (4.30-5.90); White Blood Cell Count 6.34 K/mm3 (4.00-11.30)
[2019-01-15 05:11] LABS: Anion Gap 6 mmol/L (6-16); Blood Urea Nitrogen 31 mg/dL (8-24); Bun/Creatinine Ratio 32.4 (12.0-20.0); CO2, Blood 27 mmol/L (21-32); Calcium, Blood 7.8 mg/dL (8.5-10.1); Chloride, Blood 115 mmol/L (98-108); Creatinine, Blood 0.96 mg/dL (0.60-1.20); Glomerular Filtration Rate >60 (60-); Glucose, Blood 154 mg/dL (70-99); Sodium, Blood 148 mmol/L (136-145)
--- NOTE | 2019-01-15 05:51 | NUR ---
SHIFT SUMMARY PT IS ORIENTED TO SELF, FAMILY, FOLLOWING DIRECTIONS ONLY. 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 PT HAS EQUAL STRENGTH AND MOVEMENTS TO BLE/BUE, BUT HAS GENERALIZED WEAKNESS. 2 PER MAX ASSIST, STATES HE HAS SIGNIFICANTLY DECLINED OVER THE LAST WEEK. INCONTINENT OF URINE. PT RECIEVED 2L FLUID BOLUS NS, AND MAINTENANCE NS RUNNING AT 100 ML/HR. LACTIC WNL NOW. TELE IN PLACE; NSR IN THE 60S, HEBER AT TIMES IN THE HIGH 50S. VSS. AFEBRILE. WILL CONT TO MONITOR AND PROVIDE CARE UNTIL PRESUMED BY ONCOMING RN.
--- NOTE | 2019-01-15 11:13 | NUR ---
Spiritual care visit conducted. Patient is lying in bed and asleep, with spouse, Ariana, bedside. Ariana openly shares at length about the emotional struggle she and her family have gone through as patient continues to be less and less like himself and has increased symtoms as the cancer takes its coarse. I listen empathically, help recall all that is good in what they do have and yet normalize the deep ache og loss they are all feeling. I provide spiritual guidance, emotional support and prayer. Ariana responds well while patient continues to snore loudly. I will continue to remain available to patient and family.
--- NOTE | 2019-01-15 15:40 | NUR ---
SUMMARY PT IS WEAK/FATIGUED, SLEEPING MOST OF DAY. WHEN AROUSED SOMEWHAT CONFUSED, DIFFICULTY PROCESSING. THIS AM HE CHEWED PILLS INSTEAD OF SWALLOWING. HE IS PLEASANT, ATTEMPTS TO FOLLOW DIRECTION. ORIENTED TO SELF & . SHE STATE PT HAS BEEN DECLINING, FALLS @ HOME. BRUISING/SWELLING TO FOREHEAD NOTED. PT/OT EVAL TODAY, MINIMAL PARTICIPATION D/T WEAKNESS. CONT BIOX & TELE IN PLACE, NSR 60-70'S, BIOX LOW 90'S. HAS HAD VISITS WITH DR LIMON & PMO ANALYST. PALLIATIVE CARE WILL SEE HER IN AM.
--- NOTE | 2019-01-15 17:58 | NUR ---
Spoke with caremanjorge a Martin earlier today and discussed case. Pt visit this evening. Pt resting in bed and denies pain at this time. Pt's , son, and other family members present during visit. Ariana request to conference outside of Pt's room. Listened as Ariana and son expresses concerns regarding treatment options and SNF. Listened as son reports Pt's quality of life has declined and would not want to continue to live being in and out of the hospital. Ariana reports she is considering home with comfort care but expresses concerns with her ability to care for Pt. Suggested in home caregivers or family's ability to pay for [facility]. Listened and answered questions when appropriate. Family will continue to deliberated and instructed family concerns will be relayed to caremanager. Suggested to family to continue with questions when Dr Rosa visits tomorrow. Family agreeable for palliative care to F/U for therapeutic visits. Spoke with bedside nurse Valderrama and discussed case. Palliative Care will remain available.
--- NOTE | 2019-01-16 05:15 | NUR ---
PT HAD AN ELEVATED BP THIS AM, 165/105, PT DENIES PAIN, LUNG SOUNDS CLEAR, SPOKE TO DR [place] AND RECEIVED INTRUCTION TO STOP IVF FOR NOW. OTHER THAN THIS PT HAS HAD NO PAIN THIS SHIFT, VOIDING WELL, INCONTINENT AND ATTENDS IS IN PLACE. CALL COSTELLO WITHIN REACH. FAMILY AT BEDSIDE.
[2019-01-16 05:57] LABS: BASOPHILS ABSOLUTE AUTO 0.01 K/mm3 (0.00-0.23); BASOPHILS PERCENT AUTO 0 % (0-2); EOSINOPHILS PERCENT AUTO 0 % (0-6); Hematocrit 30.8 % (37.0-53.0); Hemoglobin 10.2 g/dL (13.5-17.5); IMMATURE GRAN ABSOLUTE AUTO 0.38 K/mm3 (0.00-0.10); IMMATURE GRAN PERCENT AUTO 5 % (0-1); LYMPHOCYTES ABSOLUTE AUTO 0.67 K/mm3 (0.84-5.20); LYMPHOCYTES PERCENT AUTO 9 % (21-46); MONOCYTES ABSOLUTE AUTO 0.69 K/mm3 (0.16-1.47); MONOCYTES PERCENT AUTO 9 % (4-13); Mean Corpuscular HGB 34.6 pg (26.0-34.0); Mean Corpuscular HGB Conc 33.1 g/dL (31.5-36.5); Mean Corpuscular Volume 104 fL (80-100); Mean Platelet Volume 9.5 fL (9.1-12.4); NEUTROPHILS ABSOLUTE AUTO 5.72 K/mm3 (1.96-9.15); NEUTROPHILS PERCENT AUTO 77 % (41-73); NRBC ABSOLUTE 0.02 K/mm3 (0.00-0.02); NRBC Auto 0.3 /100 WBC (0.0-0.2); Platelet Count 130 K/mm3 (150-400); RDW Coefficient Variation 17.7 % (11.7-14.2); RDW Standard Deviation 66.8 fL (35.1-46.3); Red Blood Cell Count 2.95 M/mm3 (4.30-5.90); White Blood Cell Count 7.47 K/mm3 (4.00-11.30)
[2019-01-16 06:09] LABS: Anion Gap 6 mmol/L (6-16); Blood Urea Nitrogen 28 mg/dL (8-24); CO2, Blood 24 mmol/L (21-32); Calcium, Blood 7.5 mg/dL (8.5-10.1); Chloride, Blood 111 mmol/L (98-108); Creatinine, Blood 0.97 mg/dL (0.60-1.20); Glomerular Filtration Rate >60 (60-); Glucose, Blood 152 mg/dL (70-99); Potassium, Blood 3.9 mmol/L (3.5-5.5); Sodium, Blood 141 mmol/L (136-145)
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
--- NOTE | 2019-01-16 17:40 | NUR ---
PT'S SEIZURE MED HELD THIS AM D/T 'S CONCERN ABOUT MED CAUSING POSSIBLE DROWSINESS. OTHER SCHEDULED MEDICATIONS GIVEN WITH APPLE SAUCE. EDUCATED FAMILY ON REASON FOR CONTINUING IV ANTIBIOTICS WHILE ON COMFORT CARE. PT'S FAMILY AGREE TO TRANSITION PT TO COMFORT CARE TODAY. PT DENIES PAIN. PT INCONTINENT WITH ATTENDS ON. REPOSITIONING Q2HR. BED BATH COMPLETED WITH THIS NURSE AND PHOTOCOPIER TECHNICIAN. SIDE RAILS UP, BED IN LOW POSITION, CALL LIGHT IN REACH.
--- NOTE | 2019-01-16 19:56 | NUR ---
review with mine shifter patients medications and plan of care
--- NOTE | 2019-01-17 01:45 | NUR ---
COMFORT CARE PATIENT SLEEPING. FAMILY STAYING OVERNIGHT BEDSIDE.
--- NOTE | 2019-01-17 04:07 | NUR ---
SHIFT SUMMARY, PATIENT ON COMFORT CARE. PATIENT TOO LETHARGIC FOR PO MEDICATION. PALLIATIVE CARE RN REPORTS TO HOLD AND DC LOVENOX. PIV REMAINS INTACT. FAMILY REFUSING IV ABXS. TURN Q2. RT REPORTS TO REMOVE CONTINUOUS PULSE OXIMETRY. NO S/SX OF PAIN, SOB, AND N/V. FAMILY PRESENT T/O SHIFT. CALL LIGHT IN REACH. BED IN LOWEST POSITION. WILL CONTINUE TO MONITOR UNTIL DAY SHIFT NURSE ASSUMES CARE.
--- NOTE | 2019-01-17 08:48 | NUR ---
PT SLEEPING COMFORTABLY AND NOT WOKEN UP AT THIS TIME. SLEEPING AT BEDSIDE. WOKEN UP UPON THIS NURSE ENTRANCE INTO ROOM, ASKED IF SHE WOULD LIKE OT TO WORK WITH PT AT THIS TIME AND PT'S DECLINED.
--- NOTE | 2019-01-17 09:43 | NUR ---
Pt visit this AM. Pt's Ariana is at bedside. Pt is resting in bed and is non responsive. Offered gentle voice and therapeutic touch with no response. Moderate secretions noted. Pt appears comfortable with no S/S of distress at this time. Spoke with bedside nurse Lupe, discussed case, and reviewed comfort medications. Lupe recently placed scopolamine patch and will offer Atropine drops to help manage secretions. Called and spoke with Dr Rosa. Reported Pt's symptoms and Dr Rosa reports plan for Pt to remain in hospital due to Pt transitioning. Placed new order for Decadron 8mg IV BID for comfort, discontinued Decadron PO, and discontinued maintenance medications per V/O from Dr Rosa. Spoke with Vice President Quality Assurance Veronica, discussed case and plan. Palliative Care will remain available.
--- NOTE | 2019-01-17 11:19 | NUR ---
FAMILY IN AT BEDSIDE. WATER PROVIDED TO FAMILY. COMFORT CARE ORDERED.
--- NOTE | 2019-01-17 11:59 | NUR ---
Spiritual care visit conducted. I spent time with patient's family praying for them, crying with them, singing with them and laughing with them. Patient's family are an amazing testimony to the depth of vielka, strength and love that the patient has. I will continue to remaina vailable to patient and family.
--- NOTE | 2019-01-17 13:49 | NUR ---
AT BEDSIDE. THIS NURSE AND EFRAIN NANCE REMINISCED WITH ABOUT HER AND PT'S LIFE TOGETHER.
--- NOTE | 2019-01-17 14:11 | NUR ---
PATIENT NOTED TO BE MOTTLED. TURNED, CHANGED WITH ALLOPATHIC DOCTOR. WET.
--- NOTE | 2019-01-17 14:47 | NUR ---
TURNED AND REPOSITIONED PATIENT. ORAL CARE PROVIDED. FAMILY AT BEDSIDE SHARING STORIES OF PATIENT AND THEIR RELATIONSHIPS.
--- NOTE | 2019-01-17 17:19 | NUR ---
FAMILY AT BEDSIDE. PT CHANGED, REPOSITIONED. ORAL CARE COMPLETED.
--- NOTE | 2019-01-17 17:23 | NUR ---
UPON ASSESSMENT THIS MORNING NOTED PT TO BE MORE PROGRESSED IN DYING PROCESS. BREATHING HAS BECOME APNEIC. MOTTLING NOTED. PT UNRESPONSIVE. FAMILY AT BEDSIDE. BED BATH PROVIDED BY RN AND FINAL ASSEMBLY INSPECTOR. ORAL CARE PROVIDED TO PT THROUGHOUT SHIFT DUE TO DRYNESS. COMFORT CART PROVIDED TO FAMILY. CONTINUED EDUCATION TO FAMILY REGARDING PT'S CONDITION. PT TURNED AND REPOSITIONED Q2 AND PRN. MEDICATION PROVIDED FOR RATTLE.
--- NOTE | 2019-01-17 21:19 | NUR ---
COMFORT CARE PATIENT. NOT AROUSABLE AT THIS TIME. LABOR BREATHING WITH SECRETIONS. ROXANOL GIVEN AND ATROPINE DROPS GIVEN PER EMAR. SIX PLUS FAMILY MEMBERS IN ROOM. MOTTLED SKIN PER DAY RN. WILL CONTINUE TO MONITOR.
--- NOTE | 2019-01-17 22:19 | NUR ---
PATIENT AT 21:45. HOSPITALIST DR MAGANA NOTIFIED. SPOUSE PRESENT AND REPORTS SHE'LL TAKE PERSONAL BELONGINGS. SPOUSE PICKING OUT A SERVICE NOW AND WILL NOTIFY WHEN SHE DOES.
--- NOTE | 2019-01-17 23:17 | NUR ---
SPOUSE PICKED OUT SERVICE. FAMILY LEFT WITH PERSONAL BELONGINGS.
--- NOTE | 2019-01-17 23:25 | NUR ---
DONOR LINE CALLED, PER DONOR COORDINATOR POTENTIAL EYE DONOR. EYE BAGS PLACED ON EYES. [facility] [place] NOTIFIED THAT PT WAS READY TO BE PICKED UP AND INFORMED TRUCK SUPERVISOR THAT PT WAS POTENTIALLY EYE DONOR.
--- NOTE | 2019-01-17 23:49 | NUR ---
Pt around 10pm, Two Nurses and I went in there and did post mortom care. I removed the IV catheter, and put ice packs on pts eyes. all of us together changed pts breif and gown to a yellow gown. Nurses removed the chest metaport catheter. Linens were cleaned out of the room and trash emptied.
--- NOTE | 2019-01-18 00:17 | NUR ---
FLOYD PAREKH THE [employer] OFFICER PICKED UP PT'S BODY.
--- NOTE | 2019-01-18 00:20 | NUR ---
PATIENT DISCHARGE. NEREIDA PICKUP AND LEFT AT 00:18.
== END 2019-01-17 21:54 | DRG 871 ==
LOC: ER 11:06 → MEDS 19:14
PROVIDERS: Emergency Medicine; Nurse Practitioner Acute Care; Student in an Organized Health Care Education/Training Program; ADMIT Internal Medicine
DX: A41.9 Sepsis, unspecified organism (principal); G06.0 Intracranial abscess and granuloma; G93.6 Cerebral edema; G93.41 Metabolic encephalopathy; C64.9 Malignant neoplasm of unspecified kidney, except renal pelvis; C79.31 Secondary malignant neoplasm of brain; E23.0 Hypopituitarism; C79.51 Secondary malignant neoplasm of bone; Z51.5 Encounter for palliative care; Z90.5 Acquired absence of kidney; Z66 Do not resuscitate; R65.20 Severe sepsis without septic shock; N40.0 Benign prostatic hyperplasia without lower urinary tract symptoms; N18.3 Chronic kidney disease, stage 3 (moderate); G50.0 Trigeminal neuralgia; Z86.018 Personal history of other benign neoplasm; J01.91 Acute recurrent sinusitis, unspecified; H70.90 Unspecified mastoiditis, unspecified ear; H66.90 Otitis media, unspecified, unspecified ear
CPT/HCPCS: 36415; 51701; 70450; 71046; 76770; 80048; 80053; 81001; 82947; 83605; 84145; 85025; 87040; 93005; 93010; 94762; 96361-59; 96365-59; 96375-59; 97112; 97163; 97530; 99285-25; A9270; J1100; J1650; J2405; J2543; J7030